=== PATIENT | female | born 1945 | race Caucasian/White ===

== ENCOUNTER 2021-12-12 06:20 | Day surgery (SDC) | payer MEDICARE, SELFPAY ==
[2021-12-05 13:27] VITALS: BMI 28.9
--- NOTE | 2021-12-09 07:56 | MHC.SHP ---
Pre-Procedural Eval Section A Date of Service: 12/09/21 The patient is an INPATIENT: No Changes since office visit: No Cold of Flu in the past 2 weeks, No New Medical Problems, No Changes in Medication and No Patient answered all questions The History & Physical has been completed within 30 days and I have reviewed it.: Yes Section B Chief Complaint: cataract Allergies: Allergies Allergy/AdvReac Type Severity Reaction Status Date / Time No Known Allergies Allergy Verified 12/05/21 13:26 Plan Diagnosis/Plan: Unchanged I have reviewed the history and physical and performed a pertinent physical examination on my patient. No changes have occurred unless specified.
--- NOTE | 2021-12-09 09:43 | P.CONAN_ITS ---
Documented by User: Ann Coleman NP 12/09/21 09:44 HPI - Anesthesia Eval Consult details Narrative: 76yo F for Left Cataract Extraction IOL Insertion PCP cleared No prev cataract on record PMFSH Past Medical History Medical History Arthritis COVID-19 vaccine series completed Hiatal hernia Osteopenia Osteoporosis Skin cancer Surgical History Surgical History H/O colonoscopy History of esophagogastroduodenoscopy (EGD) Social History Social History Are you a primary respiratory care instructor to a significant other at home: No Do you presently have visiting nurse or other home services: No Patient Tobacco Use Status: Former Tobacco user Quit Date: 1982 Tobacco use type: Cigarette Use of substances other than those prescribed or required for medical reasons: No Have you been hit, kicked, punched, or otherwise hurt by someone within the past year? If so, by whom?: No Are you DNR?: No Advance Directives: Yes Advance Directives Information Provided: Yes Advance Directives on File: No Recently lost weight without trying: No Eating poorly because of decreased appetite: No Nutrition Risks: No Nutritional Risk Poor oral hygiene: No Meds Allergies Allergy/AdvReac Type Severity Reaction Status Date / Time No Known Allergies Allergy Verified 12/05/21 13:26 Home Medications Medication Instructions Recorded Confirmed Last Taken Type alendronate 70 mg tablet 1 tab PO QWEEK 12/05/21 12/05/21 Unknown History ascorbic acid (vitamin C) 1,000 mg 1,000 mg PO DAILY 12/05/21 12/05/21 Unknown History tablet (Vitamin C) calcium carbonate 600 mg-vitamin 1 cap PO DAILY 12/05/21 12/05/21 Unknown History D3 5 mcg (200 unit) capsule (Calcium 600 + D(3)) flaxseed oil 1,000 mg capsule 1,000 mg PO DAILY 12/05/21 12/05/21 Unknown History multivitamin 1 tab PO DAILY 12/05/21 12/05/21 Unknown History Exam Exam Date and Time: December 09, 2021 0943 Height,Weight and Vital Signs: Height 5 ft 4 in Weight 76.4 kg Assessment and Plan Assessment Anesthesia Assessment: Chart Reviewed Documented by User: Margo Witt MD 12/12/21 07:41 PMFSH Past Medical History Medical History Arthritis COVID-19 vaccine series completed Hiatal hernia Osteopenia Osteoporosis Skin cancer Surgical History Surgical History H/O colonoscopy History of esophagogastroduodenoscopy (EGD) History of Problems with Anesthesia: No Social History Social History Are you a primary respiratory care instructor to a significant other at home: No Do you presently have visiting nurse or other home services: No Patient Tobacco Use Status: Former Tobacco user Quit Date: 1982 Tobacco use type: Cigarette Use of substances other than those prescribed or required for medical reasons: No Have you been hit, kicked, punched, or otherwise hurt by someone within the past year? If so, by whom?: No Are you DNR?: No Advance Directives: Yes Advance Directives Information Provided: Yes Advance Directives on File: No Recently lost weight without trying: No Eating poorly because of decreased appetite: No Nutrition Risks: No Nutritional Risk Poor oral hygiene: No Meds Allergies Allergy/AdvReac Type Severity Reaction Status Date / Time No Known Allergies Allergy Verified 12/05/21 13:26 Home Medications Medication Instructions Recorded Confirmed Last Taken Type alendronate 70 mg tablet 1 tab PO QWEEK 12/05/21 12/05/21 Unknown History ascorbic acid (vitamin C) 1,000 mg 1,000 mg PO DAILY 12/05/21 12/05/21 Unknown History tablet (Vitamin C) calcium carbonate 600 mg-vitamin 1 cap PO DAILY 12/05/21 12/05/21 Unknown History D3 5 mcg (200 unit) capsule (Calcium 600 + D(3)) flaxseed oil 1,000 mg capsule 1,000 mg PO DAILY 12/05/21 12/05/21 Unknown History multivitamin 1 tab PO DAILY 12/05/21 12/05/21 Unknown History Exam Airway Mallampati Class: II TM Dist: >3cm Neck ROM: Full Loose/Missing/Broken Teeth: No Heart: RRR Lungs: CTA Assessment and Plan Assessment Anesthesia Assessment: Anesthesia Plan Discussed Final Anesthetic Review History of Problems with Anesthesia: No NPO: Yes ASA Class: II Final Preanesthetic Review: Meds/Allgs Chart Reviewed, Consent Obtained/Reviewed and Anes Risks/Benef Reviewed Patient Risk: Low Procedure Risk: Low Anesthetic Plan Anesthetic Plan: MAC: Disposition: Standard PACU
[2021-12-12 06:41] VITALS: BP 170/60; PULSE 59; RESP 16; TEMP 36.8; O2SAT 96
[2021-12-12] MEDS: Tetracaine HCl/PF 0.5% Oph Sol 4 ML DROPS 1 DROP EYE-LEFT (06:47)
[2021-12-12] MEDS: Tropicamide 1 % Ophth Sol 3 ML BTL 1 DROP EYE-LEFT ×3 (06:50→06:58)
[2021-12-12] MEDS: Phenylephrine HCL 2.5% Oph SoL 2 ML BOTTLE 1 DROP EYE-LEFT ×3 (06:51→07:01)
[2021-12-12] MEDS: Lactated Ringers 500 ML 50 ML IV (06:51)
--- NOTE | 2021-12-12 07:51 | HO.PNOPHT ---
Ophthalmology Procedure Procedure Date of Service: 12/12/21 Ophthalmology Viscoelastic: Healtrent Duet Dual Pack Pro Ophthalmology Lenses: TECNIS [id number] (12.5) Procedure Notes: PREOPERATIVE DIAGNOSIS: Decreased visual acuity left eye secondary to cataract POSTOPERATIVE DIAGNOSIS: Same PROCEDURE: Left cataract extraction with intraocular lens insertion SURGEON: Jimmy Jaquez M.D. ANESTHESIA: Topical/MAC ESTIMATED BLOOD LOSS: None COMPLICATIONS: None After obtaining informed consent, the patient was brought to the operation room suite and placed in the supine position. After adequate sedation per anesthesia, topical drops of Tetracaine were given to the left eye. The eye was then prepped and draped in the usual sterile fashion. The operating room microscope was then positioned over the operative eye and a lid speculum placed. A paracentesis was created. Viscoelastic was then instilled into the anterior chamber. A three plane incision was then created temporally, utilizing a 2.85 mm keratome. Capsulotomy forceps were then utilized to create a circular tear capsulotomy. Hydrodissection and hydrodelineation were carried out until adequate mobilization of the nucleus occurred. Phacoemulsification was then utilized to remove the dense central nucleus followed by removal of the cortical material utilizing the automated aspiration irrigation unit. Viscoat elastic was instilled into the posterior capsular bag followed by placement of a posterior chamber intraocular lens without difficulty. The residual Viscoat elastic was then removed utilizing the automated IA machine. The wound was check and found to be watertight. The patient tolerated the procedure well and the lid speculum was removed. Intracameral injection of Vigamox 0.1 mL followed by a subtenon injection of Kenalog-40 0.2 mL were administered. The patient will be seen in the a.m.
[2021-12-12 08:15] VITALS: BP 122/97; PULSE 55; RESP 18; TEMP 36.2; O2SAT 98
== END 2021-12-12 08:33 | disposition home or self-care (01) ==
PROVIDERS: PCP Physician Assistant Medical; Visit Provider Ophthalmology
PROC: (CPT 66985; principal; 2021-12-12 07:50)
DX: H25.12 Age-related nuclear cataract, left eye (principal); H52.4 Presbyopia; Z83.511 Family history of glaucoma; H43.399 Other vitreous opacities, unspecified eye; M81.0 Age-related osteoporosis without current pathological fracture; Z85.820 Personal history of malignant melanoma of skin; Z85.828 Personal history of other malignant neoplasm of skin; Z87.891 Personal history of nicotine dependence
CPT/HCPCS: 66984; J2250; J3010; J3300; V2632

== ENCOUNTER 2021-12-26 06:19 | Day surgery (SDC) | payer MEDICARE, SELFPAY ==
[2021-12-05 13:29] VITALS: BMI 28.9
--- NOTE | 2021-12-22 11:33 | MHC.SHP ---
Pre-Procedural Eval Section A Date of Service: 12/22/21 The patient is an INPATIENT: No Changes since office visit: No Cold of Flu in the past 2 weeks, No New Medical Problems, No Changes in Medication and No Patient answered all questions The History & Physical has been completed within 30 days and I have reviewed it.: Yes Section B Chief Complaint: cataract Allergies: Allergies Allergy/AdvReac Type Severity Reaction Status Date / Time No Known Allergies Allergy Verified 12/05/21 13:26 Plan Diagnosis/Plan: Unchanged I have reviewed the history and physical and performed a pertinent physical examination on my patient. No changes have occurred unless specified.
--- NOTE | 2021-12-22 15:05 | HO.ANESPROP2 ---
Documented by User: Ann Coleman NP 12/22/21 15:06 HPI - Anesthesia Eval Consult details Narrative: 76yo F for Right Cataract Extraction IOL Insertion PCP cleared Left eye 12/12/21 with MAC: Fent 50, Midaz 1 PMFSH Past Medical History Medical History Arthritis COVID-19 vaccine series completed Hiatal hernia Osteopenia Osteoporosis Skin cancer Surgical History Surgical History H/O colonoscopy History of esophagogastroduodenoscopy (EGD) History of Problems with Anesthesia: No Social History Social History Are you a primary rn palliative care to a significant other at home: No Do you presently have visiting nurse or other home services: No Patient Tobacco Use Status: Former Tobacco user Quit Date: 1982 Tobacco use type: Cigarette Use of substances other than those prescribed or required for medical reasons: No Have you been hit, kicked, punched, or otherwise hurt by someone within the past year? If so, by whom?: No Are you DNR?: No Advance Directives: No Advance Directives Information Provided: Yes Advance Directives on File: No Recently lost weight without trying: No Eating poorly because of decreased appetite: No Nutrition Risks: No Nutritional Risk Poor oral hygiene: No Meds Allergies Allergy/AdvReac Type Severity Reaction Status Date / Time No Known Allergies Allergy Verified 12/05/21 13:26 Home Medications Medication Instructions Recorded Confirmed Last Taken Type alendronate 70 mg tablet 1 tab PO QWEEK 12/05/21 12/05/21 Unknown History ascorbic acid (vitamin C) 1,000 mg 1,000 mg PO DAILY 12/05/21 12/05/21 Unknown History tablet (Vitamin C) calcium carbonate 600 mg-vitamin 1 cap PO DAILY 12/05/21 12/05/21 Unknown History D3 5 mcg (200 unit) capsule (Calcium 600 + D(3)) flaxseed oil 1,000 mg capsule 1,000 mg PO DAILY 12/05/21 12/05/21 Unknown History multivitamin 1 tab PO DAILY 12/05/21 12/05/21 Unknown History Exam Exam Date and Time: December 22, 2021 1505 Height,Weight and Vital Signs: Height 5 ft 4 in Weight 76.4 kg Assessment and Plan Assessment Anesthesia Assessment: Chart Reviewed Final Anesthetic Review History of Problems with Anesthesia: No Documented by User: Saurav Millan MD 12/26/21 07:07 [facility] Past Medical History Medical History Arthritis COVID-19 vaccine series completed Hiatal hernia Osteopenia Osteoporosis Skin cancer Family History Family history of problems with anesthesia: No Surgical History Surgical History H/O colonoscopy History of esophagogastroduodenoscopy (EGD) Social History Social History Are you a primary rn palliative care to a significant other at home: No Do you presently have visiting nurse or other home services: No Patient Tobacco Use Status: Former Tobacco user Quit Date: 1982 Tobacco use type: Cigarette Use of substances other than those prescribed or required for medical reasons: No Have you been hit, kicked, punched, or otherwise hurt by someone within the past year? If so, by whom?: No Are you DNR?: No Advance Directives: No Advance Directives Information Provided: Yes Advance Directives on File: No Recently lost weight without trying: No Eating poorly because of decreased appetite: No Nutrition Risks: No Nutritional Risk Poor oral hygiene: No Meds Allergies Allergy/AdvReac Type Severity Reaction Status Date / Time No Known Allergies Allergy Verified 12/05/21 13:26 Home Medications Medication Instructions Recorded Confirmed Last Taken Type alendronate 70 mg tablet 1 tab PO QWEEK 12/05/21 12/05/21 Unknown History ascorbic acid (vitamin C) 1,000 mg 1,000 mg PO DAILY 12/05/21 12/05/21 Unknown History tablet (Vitamin C) calcium carbonate 600 mg-vitamin 1 cap PO DAILY 12/05/21 12/05/21 Unknown History D3 5 mcg (200 unit) capsule (Calcium 600 + D(3)) flaxseed oil 1,000 mg capsule 1,000 mg PO DAILY 12/05/21 12/05/21 Unknown History multivitamin 1 tab PO DAILY 12/05/21 12/05/21 Unknown History Exam Airway Mallampati Class: II TM Dist: >3cm Neck ROM: Full Loose/Missing/Broken Teeth: No Heart: rrr+[id number] Lungs: cta b/l Assessment and Plan Assessment Anesthesia Assessment: Anesthesia Plan Discussed Final Anesthetic Review Family History of Problems with Anesthesia: No NPO: Yes ASA Class: II Final Preanesthetic Review: No Changes in Pt Med Stat, Meds/Allgs Chart Reviewed, Consent Obtained/Reviewed and Anes Risks/Benef Reviewed Patient Risk: Intermediate Procedure Risk: Low Assessment/Block/Sedation in SS: Assess/Block/Sedation-SS Anesthetic Plan Anesthetic Plan: MAC: and Agree w/ Assess. and Plan Disposition: Standard PACU
[2021-12-26 06:31] VITALS: BP 165/83; PULSE 57; RESP 16; TEMP 36.4; O2SAT 94
[2021-12-26] MEDS: Tetracaine HCl/PF 0.5% Oph Sol 4 ML DROPS 1 DROP EYE-RIGHT (06:38)
[2021-12-26] MEDS: Tropicamide 1 % Ophth Sol 3 ML BTL 1 DROP EYE-RIGHT ×3 (06:39→06:52)
[2021-12-26] MEDS: Phenylephrine HCL 2.5% Oph SoL 2 ML BOTTLE 1 DROP EYE-RIGHT ×3 (06:45→06:57)
[2021-12-26] MEDS: Lactated Ringers 500 ML 50 ML IV (06:59)
--- NOTE | 2021-12-26 07:53 | HO.PNOPHT ---
Ophthalmology Procedure Procedure Date of Service: 12/26/21 Ophthalmology Viscoelastic: Healtrent [place] Dual Pack Pro Ophthalmology Lenses: TECMYRA [id number] (11.5) Procedure Notes: PREOPERATIVE DIAGNOSIS: Decreased visual acuity right eye secondary to cataract POSTOPERATIVE DIAGNOSIS: Same PROCEDURE: Right cataract extraction with intraocular lens insertion SURGEON: Jimmy Jaquez M.D. ANESTHESIA: Topical/MAC ESTIMATED BLOOD LOSS: None COMPLICATIONS: None After obtaining informed consent, the patient was brought to the operating room suite and placed in the supine position. After adequate sedation per anesthesia, topical drops of Tetracaine were given to the right eye. The eye was then prepped and draped in the usual sterile fashion. The operating room microscope was then positioned over the operative eye and a lid speculum placed. A paracentesis was created. Viscoelastic was then instilled into the anterior chamber. A three plane incision was then created temporally, utilizing a 2.85 mm keratome. Capsulotomy forceps were then utilized to create a circular tear capsulotomy. Hydrodissection and hydrodelineation were carried out until adequate mobilization of the nucleus occurred. Phacoemulsification was then utilized to remove the dense central nucleus followed by removal of the cortical material utilizing the automated aspiration irrigation unit. Viscoelastic was instilled into the posterior capsular bag followed by placement of a posterior chamber intraocular lens without difficulty. The residual Viscoelastic was then removed utilizing the automated IA machine. The wound was checked and found to be watertight. The patient tolerated the procedure well and the lid speculum was removed. Intracameral injection of Vigamox 0.1 mL followed by a subtenon injection of Kenalog-40 0.2 mL were administered. The patient will be seen in the a.m.
[2021-12-26 08:12] VITALS: BP 153/70; PULSE 58; RESP 16; TEMP 36.6; O2SAT 100
== END 2021-12-26 08:22 | disposition home or self-care (01) ==
PROVIDERS: PCP Physician Assistant Medical; Visit Provider Ophthalmology
PROC: (CPT 66985; principal; 2021-12-26 07:50)
DX: H25.11 Age-related nuclear cataract, right eye (principal)
CPT/HCPCS: 66984; J2250; J3010; J3300; V2632

== ENCOUNTER 2025-07-14 11:30 | Outpatient (AMB) | payer MEDICARE, SELFPAY ==
--- NOTE | 2025-07-14 11:30 | A.OFFVIS_ITS ---
Vital Signs 07/14/25 11:36 Height 5 ft 4 in Weight 146 lb BMI 25.1 BP 126/84 Intake Visit Reasons: enlarged ovary Lathe Mechanic Required: No Information Interpreted: non-clinical & clinical Basic Sciences Dean: Basic Sciences Dean Present (Kristen LINCOLN) Accompanied by: Self / Same As Patient Allergies No Known Allergies Allergy (Verified 07/14/25 11:38) Post menopausal: Yes HPI Comments Details: Presenting referred from [place] PCP regarding abnormal imaging of the pelvis. The patient is has been complaining of weight loss associated with constipation abdominal bloating last six-months 05/05/2025 CT scan of abdomen and pelvis done at [place] showed prominent right ovary, pelvic ultrasound recommended. 05/13/2025 Pelvic ultrasound done at [place] showed 1.7 cm myoma, ovaries were not seen recommended pelvic MRI with contrast for further evaluation 06/22/2025 MRI of the pelvis done at [place] showed mildly complex structure of the right aspect of the pelvis the nature is uncertain possibility of inclusion cyst versus ovarian no plan to be considered. Recommended a follow-up MRI with contrast in 6 weeks [facility] Medical History COVID-19 vaccine series completed Arthritis Skin cancer Osteopenia Osteoporosis Hiatal hernia Surgical History History of esophagogastroduodenoscopy (EGD) H/O colonoscopy Family History Father HTN (hypertension) Mother HTN (hypertension) Sister Breast cancer Social History Household Members: Spouse Housing: House Are you a primary patient care associate to a significant other at home: No Do you presently have visiting nurse or other home services: No Alcohol intake: never Patient Tobacco Use Status: Former Tobacco user Tobacco use type: Cigarette Years Smoked: 16 Current occupational status: retired Sexual orientation: Straight/Heterosexual Gender identity: Female Review of Systems Const All systems reviewed & are unremarkable except as noted in HPI and below Physical Exam Vital Signs: Last Vital Signs BP 126/84 07/14/25 11:36 BMI result Body Mass Index 25.1 General: Yes no CVA tenderness External Female Exam: normal external appearance and normal appearance of the urethra Speculum Exam - Vagina: normal appearance of the vagina, normal palpation, no lesions and no masses Speculum Exam - Cervix: normal appearance of the cervix, normal palpation, no le sions, no masses and nontender Bimanual exam- vagina & uterus: normal bimanual exam, normal palpation, uterine size normal, normal palpation, uterine shape normal, No Cervical tenderness present and non-tender Bimanual Exam- Adnexa, other: normal adnexae Back/Spine/Pelvis Back: no CVA tenderness Assessment & Plan Assessment & Plan (1) Pelvic mass: Code(s): R19.00 - Intra-abdominal and pelvic swelling, mass and lump, unspecified site Category: Medical Plan: Given the non specificity of the findings of the pelvic imaging, recommended repeat MRI wolf depending on the finding will determine the next step. MRI of the pelvis with contrast ordered. Instructions given the patient is schedule follow-up appointment within a week. All questions answered, the patient verbalized understanding Orders: Orders MR pelvis w con Today R19.00 - Intra-abdominal and pelvic swelling, mass and lump, unspecified site Coding Level of Care Code New Pt Level 3 (86050) Diagnoses Pelvic mass R19.00
[2025-07-14 11:36] VITALS: BP 126/84; BMI 25.1
--- OUTSIDE RECORDS SUMMARY | 2025-07-14 14:44 | XMS_ITS ---
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 Treatment was discontinued as she had been treated for greater than 5 years. We did a bone density study in 2021 which showed osteoporosis with worsening of the T score. Tried fosamax but had throat issues, decided on Ca and D instead Osteopenia 02/17/2015 Sliding hiatal hernia 03/13/2014 Overview (08/18/2024): Barium swallow 02/25/14, small Disorder of bone and cartilage 03/25/2006 Overview (08/18/2024): IMO update Current Treatment and Therapy Plans No current plan information found. Past Treatment and Therapy Plans No past plan information found. Lifetime Dose Tracking * Chemical Lifetime Dose Automatic Entry Manual Entr y CTDIvol 11.14 mGy 11.14 mGy 0 mGy
--- OUTSIDE RECORDS SUMMARY | 2025-07-14 14:44 | XMS_ITS | Clinical Summary ---
Author Organization [facility] [address] [place] [address] Address [address] [facility] [place] Phone Care Team Providers Care Processing Analyst Name Role Phone Derek Sams Primary Care Provider [phone] Allergies No known active allergies Medications calcium carbonate-vitam in D3 600 mg-5 mcg (200 unit) per tablet Take by mouth. Active MULTIVITAMIN ORAL 1 tab daily Active raloxifene (EVISTA) 60 mg tablet Take 1 tablet (60 mg total) by mouth 1 (one) time each day. 90 tablet 3 5 Active losartan (COZAAR) 25 mg tablet TAKE 1 TABLET DAILY 90 tablet 5 Active losartan (COZAAR) 25 mg tablet Take 1 tablet (25 mg total) by mouth 1 (one) time each day. 4 06/29/20 25 Discontinued Active Problems Problem Noted Date Diagnosed Date [...] and cartilage 03/25/2006 Overview (08/18/2024): IMO update Encounters Date Type Department Care Team Description 06/19/2025 Results Follow-Up Adult Medicine [address] [phone] Nandini Mckay, PA 06/17/2025 9:46 AM EDT - 06/17/2025 11:59 PM EDT Hospital Encounter Radiology Department - [address] [phone] Enlarged ovary Discharge Disposition: Home or Self Care 05/13/2025 8:59 AM EDT - 05/13/2025 11:59 PM EDT Hospital Encounter Radiology Department - [address] [phone] Enlarged ovary Discharge Disposition: Home or Self Care 05/05/2025 8:34 AM EDT - 05/05/2025 11:59 PM EDT Hospital Encounter CT Scan - [address] [phone] Abdominal bloating; Weight loss; Constipation, unspecified constipation type Discharge Disposition: Home or Self Care 04/27/2025 11:00 AM EDT Office Visit Adult Medicine [address] [phone] Nandini Mckay PA Primary hypertension (Primary Dx); Age-related osteoporosis without current pathological fracture; Abdominal bloating; Weight loss; Constipation, unspecified constipation type from Last 3 Months Immunizations Immunization Administration Dates Next Due COVID-19 (Pfizer/Comirnaty) 12yo and older 06/12/2023 DTaP, Unspecified 10/09/2003 H1N1 Inj Preservative Free 08/24/2009 Influenza Quadravalent, 0.5m l (Fluzone High-dose) 65yo and older 06/11/2023,05/25/2022,05/25/2021 Influenza trivalent, 0.5mL ( Fluad) 65yo and older 05/25/2021,05/04/2020,05/20/2019,05/13,05/16/2017,05/24/2016,05/25/2015 Influenza trivalent, 0.5mL ( Fluzone High-dose) 65yo and older 06/03/2024,05/04/2020,05/20/2019,05/16,05/24/2016,05/25/2015 Influenza trivalent, 0.5mL, preservative free (Fluarix; FluLaval; Fluzone) ages 6mo and older (Afluria) 3 years and older 05/25/2022,06/01/2014,06/05/2013,06/04,06/16/2011,06/18/2010,06/17/2009 ,06/20/2008,06/10/2007,08/18/2006,01/2005 Influenza trivalent, with pr eservative (Fluzone; Afluria) 6mo and older 06/01/2014,06/05/2013,06/04/2012,06/16,06/18/2010,06/17/2009,06/20/2008 ,06/10/2007,08/18/2006,07/22/2005 Influenza, Unspecified 06/12/2023,2021,05/22/2019,05/16,05/24/2016 Pfizer (ages 12 & older) Biv alent, COVID-19 05/25/2022 Pfizer SARS-CoV-2 COVID-19, mRNA, LNP-S, preservative free 06/12/2023,05/25/2022,06/19/2021 Pneumococcal conjugate 13 va lent (Prevnar 13, PCV13) 2mo and older 05/28/2019,02/15/2015 Pneumococcal polysaccharide 23 valent (Pneumovax 23) 2yo and older 08/24/2009 Respiratory syncytial virus (RSV), unspecified 04/27/2023 Td Tetanus diptheria (Tdvax) 7yo and older 02/15/2015 Td, Unspecified 10/09/2003 Tdap Tetanus diptheria acell ular pertussis (Boostrix; Adacel) 7yo and older 04/27/2025 Zoster Live 09/06/2011 Zoster recombinant (Shingrix ) 19yo and older 09/12/2019,07/18/2019 Surgical History Surgery Date Site/Laterality Comments OTHER SURGICAL HISTORY PROCEDURE: HISTORICAL CA BASAL CELL; 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 COLONOSCOPY 01/31/2023 PROCEDURE: HISTORICAL COLONOSCOPY; COMMENT: muslu -hemorrhoids, diverticulosis, no repeat due to age Medical History Medical History Date Comments Disorder of bone and cartila ge, unspecified 03/25/2006 DX:Disorder of bone and cart ilage, unspecified Melanoma of skin, site unspecified 03/27/2006 DX:Melanoma of skin, site unspecified Actinic keratosis, hx of DX:Acti gunjan keratosis, hx of Sliding hiatal hernia 03/13/2014 DX:Sliding hiatal hernia; COMMENT: Barium swallow 02/25/14, small Other specified personal his tory presenting hazards to health(V15.89) DX:Other specifie d personal history presenting hazards to health(V15.89); COMMENT: melanoma left shoulder 2008 Osteopenia 02/17/2015 DX:Osteopenia History of melanoma 03/27/2006 DX:History o f melanoma; COMMENT: 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) History of squamous cell carcinoma 11/01/2006 DX:History of squamous cell carcinoma; COMMENT: 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) History of malignant melanoma of skin 03/27/2006 DX:History of malignant melanoma of skin; COMMENT: 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) History of squamous cell car cinoma of skin 11/01/2006 DX:History of squamous cell carcinoma of skin; COMMENT: 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) History of actinic keratoses 05/28/2008 DX: History of actinic keratoses; COMMENT: Actinic keratosis 05/25 right arm (hypertrophic) Hiatal hernia DX:Hiatal hernia Schatzki's ring DX:Schatzki's ri ng Rectal pressure DX:Rectal pressu re Abnormal large bowel motility DX :Abnormal large bowel motility Encounter for diagnostic col onoscopy due to change in bowel habits DX:Encounter for diagnos tic colonoscopy due to change in bowel habits Family History Medical History Relation Name Comments Breast cancer Sister 1 age 55 Colon cancer Neg Hx Ovarian cancer Neg Hx Relation Name Status Comments Brother 1 hiv Brother 2 hiv Brother 3 Alive Father (Age 82) [place] DM 4 SI BS 1 HIV 1 SISTER WITH BREAST CANCER Mother (Age 89) RA HTN Sister 1 age 55 Alive Sister 2 Alive breast cancer Social History Tobacco Use Types Packs/Day Years Used Date Smoking Tobacco: Former Cigarettes Q uit: 09/17/1982 Smokeless Tobacco: Never Tobacco Cessation:Counseling Given: Not Answered Alcohol Use Standard Drinks/Week Comments No 0 (1 standard drink = 0.6 oz pur e alcohol) Housing Instability Answer Date Recorde d Are you worried that in the next 2 months you may not have stable housing? No 10/24/2024 Food Access & Nutrition Answer Date Rec orded Do you have access to a vari ety of food including fruits and vegetables? No 10/24/2024 Access to Healthcare Answer Date Record ed Within the last 3 months, ho w many times did you visit the emergency department for your medical care? 0 10/24/2024 Health Literacy Answer Date Recorded How often do you need to hav e someone help you when you read instructions, pamphlets, or other written material from your doctor or pharmacy? Never 10/24/2024 Caregiver: How often do you need to have someone help you when you read instructions, pamphlets, or other written material from your doctor or pharmacy? Not on file 10/24/2024 Financial Risk Answer Date Recorded How hard is it for you to pa y for the very basics like food, housing, medical care, and air conditioning / heating? Not very hard 10/24/2024 Transportation Answer Date Recorded Has the lack of transportati on kept you from meetings, work, or from getting things needed for daily living? No Has the lack of transportati on kept you from medical appointments or from getting medications? No 10/24/2024 Social Isolation Answer Date Recorded How often do you feel lonely or isolated from th ose around you? Never 10/24/2024 Food Risk Answer Date Recorded Within the past 12 months we worried whether our food would run out before we got money to buy more. Never true 10/24/2024 Within the past 12 months th e food we bought just didn't last and we didn't have money to get more. Never true 10/24/2024 Living Situation Answer Date Recorded What is your living situation? Unrecognized valu e 10/24/2024 Comments No Sex and Gender Information Value Date Recorded Sex Assigned at Not on file Legal Sex Female 1:20 PM EST Gender Identity Not on file Sexual Orientation Not on file Obstetrics History Para Term AB IAB SAB Ectopic Multiple Livin g Live Births 0 0 0 0 Last Filed Vital Signs Vital Sign Reading Time Taken Comments Blood Pressure 138/77 04/27/2025 11:11 AM EDT Pulse 56 04/27/2025 11:11 AM EDT Temperature 35.7 C (96.3 F) 04/27/2025 11:02 AM EDT Respiratory Rate 12 04/27/2025 11:02 AM EDT Oxygen Saturation 97% 04/27/2025 11:11 AM EDT Inhaled Oxygen Concentration - - Weight 67.4 kg (148 lb 9.6 oz) 04/27/2025 11:02 AM EDT Height 162.6 cm (5' 4 ) 04/27/2025 11:02 AM EDT Body Mass Index 25.51 04/27/2025 11:02 AM EDT Plan of Treatment Upcoming Encounters Date Type Department Care Team (Late st Contact Info) Description 10/30/2025 8:15 AM EST Office Visit Adult [address] [phone] Derek Sams PA [address] [place] [phone] Health Maintenance Due Date Last Done Comments RSV Immunization Adult Patients (1 - 1-dose 75+ series) 2019 04/27/2023 Depression Screening 09/17/2024 04/22/2024 Medicare Annual Wellness Visit 04/22/2025 04/22/2024 Falls Risk Assessment 10/24/2025 10/24/2024 Social Influencers of Health Screening 10/24/2025 10/24/2024 Hypertension/CHF/CAD Annual BMP Blood Test 02/24/2026 02/24/2025, 03/25/2024, 03/25/2024 Cholesterol Screening (Lipid Panel) 02/24/2030 02/24/2025, 03/25/2024, 03/25/2024 Osteoporosis Screening (Bone Density Screening) 12/04/2033 12/05/2023, 09/29/2021 DTaP,Tdap,and Td Vaccines (5 - Td or Tdap) 04/27/2035 04/27/2025, 02/15/2015, 10/09/2003, Additional history exists Pneumococcal Vaccine: 50+ Years Completed 05/28/2019, 02/15/2015, 08/24/2009 Zoster Vaccines Completed 09/12/2019, 09/2018, 09/06/2011 RSV Immunization Patients Under 20 months Aged Out 04/27/2023 No longer eligible based on patient's age to complete this topic COVID-19 Vaccine Completed 06/04/2025, , 06/03/2024, Additional history exists Influenza Vaccine Completed 06/04/2025, , 06/03/2024, Additional history exists HIB Vaccines Aged Out No longer eligi ble based on patient's age to complete this topic HPV Vaccines Aged Out No longer eligi ble based on patient's age to complete this topic Hepatitis A Vaccines Aged Out No long er eligible based on patient's age to complete this topic Hepatitis B Vaccines Aged Out No long er eligible based on patient's age to complete this topic IPV Vaccines Aged Out No longer eligi ble based on patient's age to complete this topic MMR Vaccines Aged Out No longer eligi ble based on patient's age to complete this topic Meningococcal ACWY Vaccine Aged Out N o longer eligible based on patient's age to complete this topic Meningococcal B Vaccine Aged Out No l onger eligible based on patient's age to complete this topic Varicella Vaccines Aged Out No longer eligible based on patient's age to complete this topic Procedures Procedure Name Priority Date/Time Associated Diagnosis Comments MR PELVIS WO AND W CONTRAST Routine 06/17/2025 10:49 AM EDT Enlarged ovary US PELVIS NON OB COMPLETE W TRANSVAGINAL Routine 05/13/2025 10:16 AM EDT Enlarged ovary HELICOBACTER PYLORI BREATH TEST Routine 05/13/2025 9:52 AM EDT Abdominal bloating CT ABDOMEN PELVIS WO CONTRAST Routine 05/05/2025 8:55 AM EDT Abdominal bloating Weight loss Constipation, unspecified constipation type COMPREHENSIVE METABOLIC PANEL Routine 02/24/2025 7:53 AM EDT Primary hypertension LIPID PANEL WITH REFLEX TO DIRECT LDL Routine 02/24/2025 7:53 AM EDT Primary hypertension HM DEPRESSION SCREENING Routine 04/22/2024 DXA BONE DENSITY STUDY 1+ SITS AXIAL SKEL Routine 12/05/2023 9:19 AM EDT Essential (primary) hypertension from Last 3 Months or Most Recently Relevant to Health Maintenance Results * MR Pelvis wo and w Contrast (06/17/2025 10:49 AM EDT) Anatomical Region Laterality Modality Pelvis, Body Magnetic Resonan ce 06/17/2025 8:14 PM EDT Narrative 06/17/2025 8:59 PM EDT MRI of the pelvis without and with intravenous contrast. History nonvisualized ovaries on ultrasound. Prominent ovary on arm CT scan of the abdomen and pelvis from 05/05/2025. Examination was performed on 1.5 Maria Elena magnet without administration of intravenous contrast. 15 mL of DOTAREM were used for this examination. Examination is limited due to motion artifact as well as artifact from significant peristaltic activity of the small bowel in the lower abdomen and right adnexal area. Age appropriate atrophic uterus was identified without visible focal abnormalities. There is lobulated 2.7 x 2.7 x 2.8 cm structure high in the right pelvis revealed bright T2 signal, mildly increased T1 signal . This structure corresponds to findings on CT scan of the abdomen and pelvis. There is focal thickening of the posterior wall of this structure, better appreciated on axial image #26, series 501. No ovarian tissue identified surrounding this structure. There is difficult to evaluate for enhancement due to motion artifact. Possible focal enhancement on the inferior aspect visualized on axial image #71, series 901. Age-appropriate is tiny left ovary was visualized on axial image #26, series 1001 and series 601. There is trace amount of fluid in the cul-de-sac. CONCLUSIONS: Limited by motion artifact examination. Mildly complex structure in the right aspect of the pelvis with bright T2 signal, mildly increased T1 signal, mild thickening of the posterior wall , with focus of probable enhancement. The nature is uncertain. Possibility of the inclusion cyst, versus ovarian neoplasm should be considered. Clinical evaluation is recommended. Follow-up MRI with intravenous contrast is recommended in 6 months. -------- FINAL REPORT -------- Dictated By: Jacqueline Myers Dictated Date: 06/17/2025 20:14 ET Assigned Physician: Jacqueline Myers Reviewed and Electronically Signed By: Jacqueline Myers Signed Date: 06/17/2025 20:59 ET Workstation ID: [id number] Transcribed By: Self Edit Transcribed Date: 06/17/2025 20:14 ET Procedure Note Jacqueline Myers MD - 06/17/2025 MRI of the pelvis without and with intravenous contrast. History nonvisualized ovaries on ultrasound. Prominent ovary on arm CTscan of the abdomen and pelvis from 05/05/2025. Examination was performed on 1.5 Maria Elena magnet without administration ofintravenous contrast. 15 mL of DOTAREM were used for this examination. Examination is limited due to motion artifact as well as artifact fromsignificant peristaltic activity of the small bowel in the lower abdomenand right adnexal area. Age appropriate atrophic uterus was identified without visible focalabnormalities. There is lobulated 2.7 x 2.7 x 2.8 cm structure high in the right pelvisrevealed bright T2 signal, mildly increased T1 signal . This structurecorresponds to findings on CT scan of the abdomen and pelvis. There isfocal thickening of the posterior wall of this structure, betterappreciated on axial image #26, series 501. No ovarian tissue identifiedsurrounding this structure. There is difficult to evaluate for enhancementdue to motion artifact. Possible focal enhancement on the inferior aspectvisualized on axial image #71, series 901. Age-appropriate is tiny left ovary was visualized on axial image #26,series 1001 and series 601. There is trace amount of fluid in the cul-de-sac. CONCLUSIONS: Limited by motion artifact examination. Mildly complexstructure in the right aspect of the pelvis with bright T2 signal, mildlyincreased T1 signal, mild thickening of the posterior wall , with focus ofprobable enhancement. The nature is uncertain. Possibility of theinclusion cyst, versus ovarian neoplasm should be considered. Clinicalevaluation is recommended. Follow-up MRI with intravenous contrast isrecommended in 6 months. -------- FINAL REPORT -------- Dictated By: Jacqueline Myers Dictated Date: 06/17/2025 20:14 ET Assigned Physician: Jacqueline Myers Reviewed and Electronically Signed By: Jacqueline Myers Signed Date: 06/17/2025 20:59 ET Workstation ID: [id number] Transcribed By: Self Edit Transcribed Date: 06/17/2025 20:14 ET us Nandini Woody MCNALLY IMG MRI PROCEDURES Final Result * US Pelvis Non OB Complete w Transvaginal (05/13/2025 10:16 AM EDT) Anatomical Region Laterality Modality Body, Pelvis Ultrasound 05/13/2025 1:49 PM EDT Impressions 05/13/2025 1:54 PM EDT 1. Uterine fibroid 2. Ovaries not seen. Recommend MRI pelvis with IV contrast for further evaluation -------- FINAL REPORT -------- Dictated By: Andrez Herrera Dictated Date: 05/13/2025 13:49 ET Assigned Physician: Andrez Herrera Reviewed and Electronically Signed By: Andrez Herrera Signed Date: 05/13/2025 13:54 ET Workstation ID: [id number] Transcribed By: Self Edit Transcribed Date: 05/13/2025 13:49 ET Narrative 05/13/2025 1:54 PM EDT EXAM: TRANSABDOMINAL AND TRANSVAGINAL PELVIC ULTRASOUND HISTORY: Prominent appearing right ovary. COMPARISON: CT abdomen and pelvis from 05/05/2025 Technique: Grayscale and Doppler images of the pelvis were obtained using transabdominal approach. Transvaginal approach was used to better characterize the ovaries FINDINGS: The uterus is normal in size and measures 4.4 x 1.5 x 2.3 cm. The normal in caliber endometrial stripe measures up to 0.2 cm. Within the intramural/subserosal region is a hypoechoic solid mass with calcifications measuring 1.7 x 1.3 x 1.6 cm. Ovaries are not seen. No free fluid. Procedure Note Andrez Herrera MD - 05/13/2025 EXAM: TRANSABDOMINAL AND TRANSVAGINAL PELVIC ULTRASOUND HISTORY: Prominent appearing right ovary. COMPARISON: CT abdomen and pelvis from 05/05/2025 Technique: Grayscale and Doppler images of the pelvis were obtained usingtransabdominal approach. Transvaginal approach was used to bettercharacterize the ovaries FINDINGS: The uterus is normal in size and measures 4.4 x 1.5 x 2.3 cm. The normalin caliber endometrial stripe measures up to 0.2 cm. Within theintramural/subserosal region is a hypoechoic solid mass withcalcifications measuring 1.7 x 1.3 x 1.6 cm. Ovaries are not seen. No free fluid. IMPRESSION: 1. Uterine fibroid 2. Ovaries not seen. Recommend MRI pelvis with IV contrast for furtherevaluation -------- FINAL REPORT -------- Dictated By: Andrez Herrera Dictated Date: 05/13/2025 13:49 ET Assigned Physician: Andrez Herrera Reviewed and Electronically Signed By: Andrez Herrera Signed Date: 05/13/2025 13:54 ET Workstation ID: [id number] Transcribed By: Self Edit Transcribed Date: 05/13/2025 13:49 ET us Nandini Mckay PA IMG US PROCEDURES Final Result * Helicobacter pylori breath test (05/13/2025 9:52 AM EDT) H Pylori Breath Test Negative Negative LAB CHEMISTRY METHOD 05/13/2025 1:56 PM EDT [facility] Breath Oral cavity structure / Unknown Non-blood Collection / Unknown 05/13/2025 9:52 AM EDT 05/13/2025 9:52 AM EDT us Nandini Mckay PA LAB BODY FLUIDS AND STOOLS ORDER CORNELIUS Final Result [facility] [address] [place] [address], [place] [phone] * CT Abdomen Pelvis wo Contrast (05/05/2025 8:55 AM EDT) Anatomical Region Laterality Modality Body Computed Tomogra phy 05/05/2025 8:57 AM EDT Impressions 05/06/2025 9:17 AM EDT No evidence of an acute abdominal or pelvic process. Prominent appearing right ovary. Recommend pelvic ultrasound for further evaluation. A copy of this report will be provided to the [facility] FIND Program. POS - [id number] -------- FINAL REPORT -------- Dictated By: Samantha Burch Dictated Date: 05/05/2025 08:57 ET Assigned Physician: Samantha Burch Reviewed and Electronically Signed By: Samantha Burch Signed Date: 05/06/2025 09:17 ET Workstation ID: [id number] Transcribed By: Self Edit Transcribed Date: 05/05/2025 09:52 ET Narrative 05/06/2025 9:17 AM EDT EXAM: CT abdomen and pelvis HISTORY: Weight loss, bloating, and constipation. COMPARISON: None TECHNIQUE: CT of the abdomen and pelvis with oral and without intravenous contrast. Coronal and sagittal reformatted images were generated. The radiation dose total CTDIvol: 11.14 mGy. FINDINGS: Limited assessment of solid organs without IV contrast. Lower thorax: Mild atelectasis and/or scarring in the basal lungs. No pleural or pericardial effusions. Liver: Multiple scattered cysts with the largest measuring 1.8 cm in the left hepatic lobe. Gallbladder/biliary tree: No calcified gallstones or pericholecystic inflammatory change. Common bile duct does not appear dilated. Spleen: No abnormality detected. Pancreas: No abnormality detected. Adrenal glands: Hypodense thickening of the left adrenal gland as seen with hyperplasia. No right adrenal nodule. Kidneys/ureters: No hydronephrosis or perinephric fat stranding. 2.2 cm cyst arising from the left upper kidney. No renal or definite ureteral stones. Vasculature: Minimal atherosclerotic calcifications. No abdominal aortic aneurysm. Peritoneum: No evidence of free intraperitoneal air, free fluid, or organized collection. Lymph nodes: No lymphadenopathy detected. Bowel: Moderate stool volume in the colon. No evidence of a bowel obstruction. No bowel inflammatory changes. Normal appendix. Mild sigmoid diverticulosis. Small hiatal hernia. Body wall: Tiny fat-containing bilateral inguinal hernias, left greater than right. Bladder: Underdistended. No definite abnormality. Reproductive: Right ovary appears prominent for patient age. No uterine or left ovarian abnormality detected. Bones: Multilevel degenerative changes in the spine. Grade 1 anterolisthesis of L5 on S1. Unilateral spondylolysis on the left at L5. Ovoid fat attenuation lesion in the posterior spinal canal at the L3-4 level which appears intradural and measures 2.6 cm in craniocaudad extent. 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 Procedure Note Samantha Burch MD - 05/06/2025 EXAM: CT abdomen and pelvis HISTORY: Weight loss, bloating, and constipation. COMPARISON: None TECHNIQUE: CT of the abdomen and pelvis with oral and without intravenouscontrast. Coronal and sagittal reformatted images were generated. Theradiation dose total CTDIvol: 11.14 mGy. FINDINGS: Limited assessment of solid organs without IV contrast. Lower thorax: Mild atelectasis and/or scarring in the basal lungs. Nopleural or pericardial effusions. Liver: Multiple scattered cysts with the largest measuring 1.8 cm in theleft hepatic lobe. Gallbladder/biliary tree: No calcified gallstones or pericholecysticinflammatory change. Common bile duct does not appear dilated. Spleen: No abnormality detected. Pancreas: No abnormality detected. Adrenal glands: Hypodense thickening of the left adrenal gland as seenwith hyperplasia. No right adrenal nodule. Kidneys/ureters: No hydronephrosis or perinephric fat stranding. 2.2 cmcyst arising from the left upper kidney. No renal or definite ureteralstones. Vasculature: Minimal atherosclerotic calcifications. No abdominal aorticaneurysm. Peritoneum: No evidence of free intraperitoneal air, free fluid, ororganized collection. Lymph nodes: No lymphadenopathy detected. Bowel: Moderate stool volume in the colon. No evidence of a bowelobstruction. No bowel inflammatory changes. Normal appendix. Mild sigmoiddiverticulosis. Small hiatal hernia. Body wall: Tiny fat-containing bilateral inguinal hernias, left greaterthan right. Bladder: Underdistended. No definite abnormality. Reproductive: Right ovary appears prominent for patient age. No uterine orleft ovarian abnormality detected. Bones: Multilevel degenerative changes in the spine. Grade 1anterolisthesis of L5 on S1. 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 IMPRESSION: No evidence of an acute abdominal or pelvic process. Prominent appearing right ovary. Recommend pelvic ultrasound for furtherevaluation. A copy of this report will be provided to the [facility] FINDProgram. POS - [id number] -------- FINAL REPORT -------- Dictated By: Samantha Burch Dictated Date: 05/05/2025 08:57 ET Assigned Physician: Samantha Burch Reviewed and Electronically Signed By: Samantha Burch Signed Date: 05/06/2025 09:17 ET Workstation ID: [id number] Transcribed By: Self Edit Transcribed Date: 05/05/2025 09:52 ET us Nandini Woody MCNALLY IMG CT PROCEDURES Final Result * Lipid panel with reflex to direct LDL (02/24/2025 7:53 AM EDT) Cholesterol 171 0 - 200 mg/dL LAB CHEMISTRY METHOD 02/24/2025 2:23 PM EDT [facility] Triglycerides 53 0 - 150 mg/dL LAB CHEMISTRY METHOD 02/24/2025 2:23 PM EDT [facility] HDL 80 >=40 mg/dL LAB CHEMISTRY METHOD 02/24/2025 2:23 PM EDT [facility] LDL Calculated 80 0 - 100 mg/dL LAB CHEMISTRY METHOD 02/24/2025 2:23 PM EDT [facility] VLDL Cholesterol Jay 10.6 mg/dL LAB CHEMISTRY METHOD 02/24/2025 2:23 PM EDT [facility] Non HDL Chol. (LDL+VLDL) 91 <145 mg/dL LAB CHEMISTRY METHOD 02/24/2025 2:23 PM EDT [facility] Chol/HDL Ratio 2.1 0.0 - 4.4 LAB CHEMISTRY METHOD 02/24/2025 2:23 PM T [facility] Blood Venous blood specimen / Unknown Venipuncture / Unknown 02/24/2025 7:53 AM EDT 02/24/2025 7:53 AM EDT us Derek MCNALLY LAB BLOOD ORDERABLES Ansley l Result [facility] [address] [place] [address], [place] [phone] * Comprehensive metabolic panel (02/24/2025 7:53 AM EDT) Sodium 142 133 - 145 mmol/L LAB CHEMISTRY METHOD 02/24/2025 2:23 PM EDT [facility] Potassium 4.2 3.5 - 5.5 mmol/L LAB CHEMISTRY METHOD 02/24/2025 2:23 PM [facility] Chloride 108 96 - 110 mmol/L LAB CHEMISTRY METHOD 02/24/2025 2:23 PM [facility] CO2 28 21 - 32 mmol/L LAB CHEMISTRY METHOD 02/24/2025 2:23 PM [facility] Anion Gap 6 3 - 11 LAB CHEMISTRY METHOD 02/24/2025 2:23 PM [facility] Glucose 86 70 - 100 mg/dL LAB CHEMISTRY METHOD 02/24/2025 2:23 PM [facility] BUN 14 5 - 25 mg/dL LAB CHEMISTRY METHOD 02/24/2025 2:23 PM [facility] Creatinine 0.77 0.50 - 1.10 mg/dL LAB CHEMISTRY METHOD 02/24/2025 2:23 PM [facility] eGFR 78 >=60 mL/min/1. 73m2 LAB CHEMISTRY METHOD 02/24/2025 2:23 PM [facility] Comment:Calculation based on the Chronic Kidney Disease Epidemiology Collaboration (CKD-EPI) equation refit without adjustment for race. BUN/Creatinine Ratio 18.2 LAB CHEMISTRY METHOD 02/24/2025 2:23 PM [facility] Calcium 9.1 8.5 - 10.5 mg/dL LAB CHEMISTRY METHOD 02/24/2025 2:23 PM [facility] AST (SGOT) 27 10 - 42 unit/L LAB CHEMISTRY METHOD 02/24/2025 2:23 PM [facility] ALT (SGPT) 25 10 - 60 unit/L LAB CHEMISTRY METHOD 02/24/2025 2:23 PM [facility] Alkaline Phosphatase 59 42 - 121 unit/L LAB CHEMISTRY METHOD 02/24/2025 2:23 PM [facility] Total Protein 6.8 6.0 - 8.0 g/dL LAB CHEMISTRY METHOD 02/24/2025 2:23 PM EDT [facility] Albumin 3.6 3.2 - 5.0 g/dL LAB CHEMISTRY METHOD 02/24/2025 2:23 PM EDT [facility] Total Bilirubin 0.6 0.0 - 1.4 mg/dL LAB CHEMISTRY METHOD 02/24/2025 2:23 PM EDT [facility] Blood Venous blood specimen / Unknown Venipuncture / Unknown 02/24/2025 7:53 AM EDT 02/24/2025 7:53 AM EDT Derek MCNALLY LAB BLOOD ORDERABLES Ansley stone Result [facility] [address] [place] [address], [place] [phone] * Depression Screening (04/22/2024) [facility] Depression Screening abstracted Historical Provider HEALTH MAINTENANCE Final Result * DXA BONE DENSITY STUDY 1+ SITS AXIAL SKEL (12/05/2023 9:19 AM EDT) Anatomical Region Laterality Modality Bone Densitometr y 10/15/2023 8:57 AM EST Narrative 12/05/2023 1:24 PM EDT BONE DENSITY Lumbar Spine T-score is -0.9 (SD relative to 20-29 y/o adult) Z-score is +1.8 (SD relative to age matched peers) This is normal by criteria defined by the WHO. Left Hip T-score is -2.7 Z-score is -0.4 This is consistent with osteoporosis by criteria defined by the WHO. Comparison exam(s): no statistically significant change in the bone density of the hip and lumbar spine when compared to most recent bone density examination Confidence level is +/-95%. Impression: Based on the World Health Organization criteria, Callie Andrews should be classified as having osteoporosis. The [facility] Department of Internal Medicine recommends using National Osteoporosis Foundation (NOF) guidelines in treatment decisions related to osteoporosis. NOF guidelines suggest considering treatment for postmenopausal women and men aged 50 or older presenting with the following: History of hip or vertebral fracture. T-score less than or equal to -2.5 (DXA) at the femoral neck, total hip, or spine, after appropriate evaluation to exclude secondary causes. Low bone mass (T-score between -1.0 and -2.5 at the femoral neck or spine) AND a 10-year probability of a hip fracture greater than or equal to 3% OR a 10-year probability of a major osteoporosis-related fracture greater than or equal to 20% based on the [place]-adapted WHO algorithm Please note that all treatment decisions require clinical judgment and consideration of individual patient factors, including patient preferences, co-morbidities, previous drug use, risk factors not captured in the FRAX model (e.g., frailty, falls, vitamin D deficiency, increased bone turnover, interval significant decline in bone density) and possible under- or over-estimation of fracture risk by FRAX. Procedure Note Cristian Francisco MD - 05/05/2024 BONE DENSITY Lumbar Spine T-score is -0.9 (SD relative to 20-29 y/o adult) Z-score is +1.8 (SD relative to age matched peers) This is normal by criteria defined by the WHO. Left Hip T-score is -2.7 Z-score is -0.4 This is consistent with osteoporosis by criteria defined by the WHO. Comparison exam(s): no statistically significant change in the bonedensity of the hip and lumbar spine when compared to most recent bonedensity examination Confidence level is +/-95%. Impression: Based on the World Health Organization criteria, Callie Andrews shouldbe classified as having osteoporosis. The [facility] Department of Internal Medicine recommendsusing National Osteoporosis Foundation (NOF) guidelines in treatmentdecisions related to osteoporosis. NOF guidelines suggest consideringtreatment for postmenopausal women and men aged 50 or older presentingwith the following: History of hip or vertebral fracture. T-score less than or equal to -2.5 (DXA) at the femoral neck, total hip,or spine, after appropriate evaluation to exclude secondary causes. Low bone mass (T-score between -1.0 and -2.5 at the femoral neck or spine)AND a 10-year probability of a hip fracture greater than or equal to 3% ORa 10-year probability of a major osteoporosis-related fracture greaterthan or equal to 20% based on the [place]-adapted WHO algorithm Please note that all treatment decisions require clinical judgment andconsideration of individual patient factors, including patientpreferences, co-morbidities, previous drug use, risk factors not capturedin the FRAX model (e.g., frailty, falls, vitamin D deficiency, increasedbone turnover, interval significant decline in bone density) and possibleunder- or over-estimation of fracture risk by FRAX. Derek MCNALLY IMKareem DXA PROCEDURES Final Result from Last 3 Months or Most Recently Relevant to Health Maintenance Insurance [facility]IC[facility] Care Teams Processing Analyst Relationship Specialty Start Date End Date Derek Sams PA [address] [place] [id number] PCP - General Internal Medicine 09/09/20
== END 2025-07-14 14:43 | disposition home or self-care (01) ==
LOC: HO.HWS 11:30
PROVIDERS: PCP Physician Assistant Medical; Visit Provider Obstetrics & Gynecology
DX: R19.00 Intra-abdominal and pelvic swelling, mass and lump, unspecified site (principal)
CPT/HCPCS: 99203

== ENCOUNTER → 2025-07-14 11:30 | Outpatient (BNVA) | payer MEDICARE, SELFPAY | PROVIDERS: PCP Physician Assistant Medical; Visit Provider Obstetrics & Gynecology | DX: R19.00 Intra-abdominal and pelvic swelling, mass and lump, unspecified site (principal) | CPT/HCPCS: 99202 ==

== ENCOUNTER 2025-07-15 14:52 | Outpatient (REF) | payer MEDICARE, SELFPAY ==
--- OUTSIDE RECORDS SUMMARY | 2024-01-17 04:00 | XMS_ITS ---
Author Organization [facility] Address [address] [place] [id number] Care Team Providers [employer] Est[employer]ator Name Role Phone Derek Amaod Primary Care Provider Sona Gomez Unavailable [phone] Mukesh Mabry [phone] Sutton Encounters Encounter Location Date Provider Diagnosis [address] [address] 01/17/2024 Mukesh Mabry Plan Of Treatment Next Appt Details Provider Name:Sona De Souza victor manuel, 10/15/2025 09:00:00 AM, [address] [place] [address], [phone], Progress Notes * Callie ANDREWS RDOB:[birth year] (80 yo F)Acc No.[id number]:01/17/2024 Progress Note Patient: Callie DHILLON Provider: Mando Perez DPM :1945 A ge:78 Y S ex:Female Date:01/17/2024 Address:[address] [place] [address] Pcp:DALI Quiroga Subjective: * Chief Complaints: * [address] Sutton[address] * Medical History: Objective: * Vitals: Assessment: Plan: * Treatment: * Images: * The named appointment provid er may or may not be the originator of this progress note, and it is not deemed complete until electronically signed by the appointment provider. Sign off status: Pending * Provider: Mando Perez DPM Date: 0 01/17/2024 Generated for Bruce Gaxiola on: 07:17 PM EDT
--- OUTSIDE RECORDS SUMMARY | 2024-12-29 05:00 | XMS_ITS ---
Author Organization [facility] Address [address] [place] [address] Care Team Providers Care Shallot Cleaner Name Role Phone Derek Amado Primary Care Provider Unav kariSona Phelan Unavailable [phone] Allergies No Known Allergies REASON FOR VISIT [...] Ordered Date Performed Result Body Sit e 00426-JZGLHIK NAIL, 6 OR MORE 12/29/2024 N/A Encounters Encounter Location Date Provider Diagnosis [facility] [address] [address] 12/29/2024 Sona Thomas Pain in right toe(s) M79.674 ; Onychomycosis B35.1 and Pain in left toe(s) M79.675 Assessments Encounter Date Diagnosis (ICD Code) Assessment Notes Treatment Notes Treatment Clinical Notes Section Notes 12/29/2024 Pain in right toe(s) (ICD-10 - M79.674) 12/29/2024 Onychomycosis (ICD-10 - B35.1) 12/29/2024 Pain in left toe(s) (ICD-10 - M79.675) Plan Of Treatment Pending Test Test Name Order Date [id number] NAIL, 6 OR MORE 12/29/2024 Next Appt Details Follow Up: 3 Months, Reason: Provider Name:Sona rush, 10/15/2025 09:00:00 AM, [address] [place] [address], [phone], Procedure Notes * Category Sub-Category Detail Notes [...] use of a nail nipper and/or dremel-type cutter grinder, to a more viable healthy nail plate [...] to maintain effectiveness in symptomatic relief - 28208 Progress Notes * Callie ANDREWS RDOB:[birth year] (80 yo F)Acc No.[id number]:12/29/2024 Progress Note Patient: Callie DHILLON Provider: Daylin Thomas DPM :1945 A ge:79 Y S ex:Female Date:12/29/2024 Address:[address] [place], [place] [id number] Pcp:DALI Quiroga Subjective: * Chief Complaints: * [...] enies. C ardiovascular: Pacemaker d enies. 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 W PW d enies. C [...] work, housework. Marital status: . 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 D rug/Alcohol: A SANDRA-C (Standard) D id [...] use of a nail nipper and/or dremel-type cutter grinder, to a more viable healthy nail plate [...] to maintain effectiveness in symptomatic relief - 53091. * Procedure Codes: 1 1721 DEBRIDE NAIL, [...] 0 12/29/2024 Generated for Bruce araiza/Mily/Edi on: 07:18 PM EDT History and Physical Notes * HPI (History [...]
--- OUTSIDE RECORDS SUMMARY | 2025-07-13 05:00 | XMS_ITS ---
Author Organization [facility] Address [address] [place] [address] Care Team Providers Care Tipple Operator Name Role Phone Derek Amado Primary Care Provider Unav sherry Thomas Sona Unavailable [phone] Allergies No Known Allergies REASON FOR VISIT Painful nail(s) aggravated by shoes causing difficulty standing/walking Medications Medication SIG (Take, Route, Frequency, Duration) Notes Start Date End Date Status Nitro-Bid 2 % as directed Transder mal apply bid to toes; Duration: 30 days Not-Taking Keflex 500 MG 1 capsule Orally desiree ry 12 hrs; Duration: 14 days Not-Taking Fish Oil 1000 MG 1 capsule Orally Onc e a day Active Multi Vit/Fl 0.25 MG 1 tablet Orally Onc e a day Active Keflex 500 MG 1 capsule Orally desiree ry 12 hrs; Duration: 14 days 03/29/2016 Not-Taking aspirin Active Calcium 1 tab Oral Active Evista Active Losartan Potassium 25 MG 1 tablet Orally Once a day; Duration: 30 day(s) Active Social History Tobacco Use: Social History [...] Signs Height 5 ft 5 in in 07/13/2025 Weight 150 lbs 07/13/2025 BMI 24.96 kg/m2 07/13/2025 Blood pressure systolic 127 mm Hg 07/13/20 25 Blood pressure diastolic 65 mm Hg 025 Procedures Procedure Date Ordered Date Performed Result Body Sit e 84548-PCRHHKL NAIL, 6 OR MORE 07/13/2025 N/A Encounters Encounter Location Date Provider Diagnosis [facility] [address] [address] 07/13/2025 Sona Thomas Pain in right toe(s) M79.674 ; Onychomycosis B35.1 and Pain in left toe(s) M79.675 Assessments Encounter Date Diagnosis (ICD Code) Assessment Notes Treatment Notes Treatment Clinical Notes Section Notes 07/13/2025 Pain in right toe(s) (ICD-10 - M79.674) 07/13/2025 Onychomycosis (ICD-10 - B35.1) 07/13/2025 Pain in left toe(s) (ICD-10 - M79.675) Plan Of Treatment Pending Test Test Name Order Date [id number] NAIL, 6 OR MORE 07/13/2025 Next Appt Details Follow Up: 3 Months, Reason: Provider Name:Sona rush, 10/15/2025 09:00:00 AM, [address] [place] [address], [phone], Procedure Notes * Category Sub-Category Detail Notes [...] use of a nail nipper and/or dremel-type terrazzo grinder, to a more viable healthy nail [...] to maintain effectiveness in symptomatic relief - 07226 Progress Notes * Callie ANDREWS RDOB:[birth year] (80 yo F)Acc No.[id number]:07/13/2025 Progress Note Patient: Callie DHILLON Provider: Daylin Thomas DPM :1945 A ge:80 Y S ex:Female Date:07/13/2025 Address:[address] [place], [place] [id number] Pcp:DALI Quiroga Subjective: * Chief Complaints: * P ainful nail(s) aggravated by shoes causing difficulty standing/walking * HPI: P ainful Nails: Pt States Last PCP Visit: D ate: 0 04/08/2025 * ROS: G eneral/Constitutional: Nausea d enies. [...] enies. C ardiovascular: Pacemaker d enies. M LEAD APPLIER d enies. W PW d enies. C [...] T remors d enies. * Medical History: * Surgical History: B il cataract surgery 12/12/21,12/26/21 * Hospitalization/Major Diagno stic Procedure: D enies Past Hospitalization * Family History: M other: , diagnosed with Unspecified heart disease, Family history of arthritis. F ather: , diagnosed with Unspecified heart disease. * Social History: T obacco Use: T obacco use other than smoking A re you an other tobacco user? N o Tobacco Control (Standard) T obacco use: N onsmoker A dditional Findings: Tobacco non-user C urrent nonsmoker M iscellaneous: C affeine: no. Children: no. Exercise: yes, gardening/yard work, housework. Marital status: . 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 D rug/Alcohol: A SANDRA-C (Standard) D id you have a drink containing alcohol in the past year? N o P oints 0 I nterpretation N egative * Medications: T akingEvista Losartan Potassium 25 MG Tablet 1 tablet Orally Once a day aspirin Calcium 1 tab Oral Fish Oil 1000 MG Capsule 1 capsule Orally Once a day Multi Vit/Fl 0.25 MG Tablet Chewable 1 tablet Orally Once a day Taking Evista Taking Losartan Potassium 25 MG Tablet 1 tablet Orally Once a day Taking aspirin Taking Calcium 1 tab Oral Taking Fish Oil 1000 MG Capsule 1 capsule Orally Once a day Taking Multi Vit/Fl 0.25 MG Tablet Chewable 1 tablet Orally Once a day Not-Taking/PRNNitro-Bid 2 % Ointment as directed Transdermal apply bid to toes Keflex 500 MG Capsule 1 capsule Orally every 12 hrs Keflex 500 MG Capsule 1 capsule Orally every 12 hrs Medication List reviewed and reconciled with the patientNot-Taking/PRN Nitro-Bid 2 % Ointment as directed Transdermal apply bid to toes Not-Taking/PRN Keflex 500 MG Capsule 1 capsule Orally every 12 hrs Not-Taking/PRN Keflex 500 MG Capsule 1 capsule Orally every 12 hrs Medication List reviewed and reconciled with the patient * Allergies: N .K.D.A.yes[Allergies Verified] Objective: * Vitals: H t: 5 ft 5 in, Wt: 150, BMI: 24.96, Shoe size: 9, BP: 127/65 mm Hg, Wt-k.04 kg. * Examination: N ails: NAILS are: [...] use of a nail nipper and/or dremel-type terrazzo grinder, to a more viable healthy nail [...] to maintain effectiveness in symptomatic relief - 37609. * Procedure Codes: 1 1721 DEBRIDE NAIL, 6 OR MORE * Follow Up: 3 Months * Images: * Sign off status: Completed true * Provider: Daylin Thomas DPM Date: Generated for Bruce araiza/Mily/Adriánitting on: 07:18 PM EDT History and Physical Notes * HPI (History of Present Illness) Category Sub-Category Detail Notes Category Not es Painful Nails Pt States Last PCP Visit: Date:: 04/08/2025 Examination Category Sub-Category Detail Notes Category Not es Nails NAILS are: Elongated, overg rown, dystrophic, lytic, greater than 3mm thick, discolored and friable with crumbly malodorous subungual debris, with pain on palpation, TA, T1, T2, T3, T4, T5, T6, T7, T8, T9-
--- NOTE | ~2025-07-15 | MR_ITS ---
EXAMINATION: MR PELVIS WITHOUT AND WITH CONTRAST CLINICAL INFORMATION: R19.00. Intra-abdominal and pelvic swelling. COMPARISON: None available. TECHNIQUE: Multiplanar, multisequence MRI pelvis/sacrococcyx without and following the IV contrast administration 7 cc of gadolinium based (Gadavist) without reported immediate complications. FINDINGS: Patient's breathing motion artifact. Bone marrow T2 fat-sat signal within the superior aspect of the right and to a lesser extent left sacroiliac joint, alar of the sacrum and posterior right iliac bone. No abnormal enhancement. Spondylosis at L5-S1 resulting in grade 1 anterolisthesis. Bone marrow T2 fat-sat signal in the posterior elements of L5-S1/facet joints. Abundant stool within the rectosigmoid colon. The uterus measures 4 x 1.4 cm in the craniocaudal and AP dimensions respectively. There is questionable 1.8 cm uterine fibroid to the right side of the uterus. There is trace of fluid in the coxofemoral joints. Bone marrow inhomogeneity. Spina bifida occulta in the sacrum. No inguinal hernias. No gross lymphadenopathy. Bladder is fluid-filled. Tarlov cysts in the right S3 and likely on the left S2 4. Levoconvex rotoscoliosis of the lumbar spine no fully included in the exam. There are multiple hyperintense T2 cystic lesions throughout the liver parenchyma. Multifocal cystic lesions in the kidneys. Liver measures 14 cm. Spleen measures 9 cm. MR/MR pelvis wo/w con IMPRESSION: Probable sacroiliitis, right greater than the left side. Probable 1.8 cm uterine fibroid. Grade 1 anterolisthesis L5-S1. Levoconvex rotoscoliosis, lumbar spine. Spina bifida occulta, sacrum and associated Tarlov cysts. Multifocal cystic lesions, liver and kidney. Electronically signed by: Bro Lemus MD 07/15/2025 03:48 PM EDT
--- OUTSIDE RECORDS SUMMARY | 2025-07-15 19:17 | XMS_ITS ---
Author Name [facility] Organization Unknown Care Team Organization Name Specialty Phone Email Start Date End Da te [facility] 05/06/2025 [facility] Derek Sams Primary Care 02/23/2023
--- OUTSIDE RECORDS SUMMARY | 2025-07-15 19:18 | XMS_ITS ---
Author Organization [facility] [address] [place] [address] [place], [place] [address]y [place] Phone Care Team Providers Care Climate Change Analyst Name Role Phone Derek Sams Primary Care Provider [phone] Active Problems Problem Noted Date Diagnosed Date [...]
--- OUTSIDE RECORDS SUMMARY | 2025-07-15 19:18 | XMS_ITS | Patient Health Record ---
Author Organization [facility] Address [address] [place] [address] Care Team Providers Care Director International Name Role Phone Derek Amado Primary Care Provider Sona Gomez Unavailable [phone] Allergies No Known Allergies Reason For Referral No Information Medications Medication SIG (Take, Route, Frequency, Duration) [...] tablet Orally Onc e a day Active aspirin Active Calcium 1 tab Oral Active Evista Active Losartan Potassium 25 MG 1 tablet Orally Once a day; Duration: 30 day(s) Active Keflex 500 MG 1 capsule Orally desiree ry 12 hrs; Duration: 14 days 03/29/2016 Not-Taking Immunizations Vaccine Route Administration Date Status Comme nts Influenza Unknown 05/25/2022 Administered Influenza Unknown 06/17/2024 Administered Influenza Unknown 06/17/2025 Administered COVID-19 Pfizer BioNTech Vaccine Unknown 05/25/2022 Administered 1st 10/31/20,11/21/20 06/29/21 Social History Tobacco Use: Social History Observation [...] ast year? No Points 0 Interpretation Negative Problems Problem Type SNOMED Code ICD Code Onset Dates Problem Status W/U Status Risk Notes Problem Tinea unguium (296248076) Tinea unguium (B35.1) Active confirmed Vital Signs Blood pressure diastolic 65 mm Hg 07/13/2025 Height 5 ft 5 in in 07/13/2025 Blood pressure systolic 127 mm Hg 07/13/2025 Weight 150 lbs 07/13/2025 BMI 24.96 kg/m2 07/13/2025 Procedures Procedure Date Ordered Date Performed Result Body Sit e 95318-RSFZNRW NAIL, 6 OR MORE 08/06/2024 N/A 81360-RVXAKJU NAIL, 6 OR MORE 12/29/2024 N/A 29713-YYTINYG NAIL, 6 OR MORE 04/02/2025 N/A 80847-ATUDCFD NAIL, 6 OR MORE 07/13/2025 N/A Encounters Encounter Location Date Provider Diagnosis [address] [address] 12/29/2024 Sona Thomas Pain in right toe(s) M79.674 ; Onychomycosis B35.1 and Pain in left toe(s) M79.[address] [address] 08/06/2024 Sona Estradaaker Tinea unguium B35.1 ; Pain in right toe(s) M79.674 and Pain in left toe(s) M79.[address] [address] 04/02/2025 Sona Thomas Pain in right toe(s) M79.674 ; Onychomycosis B35.1 and Pain in left toe(s) M79.[address] [address] 07/13/2025 Sona Thomas Pain in right toe(s) M79.674 ; Onychomycosis B35.1 and Pain in left toe(s) M79.675 Assessments Encounter Date Diagnosis (ICD Code) Assessment Notes Treatment Notes Treatment Clinical Notes Section Notes 08/06/2024 Tinea unguium (ICD-10 - B35.1) 08/06/2024 Pain in right toe(s) (ICD-10 - M79.674) 12/29/2024 Pain in right toe(s) (ICD-10 - M79.674) 04/02/2025 Pain in right toe(s) (ICD-10 - M79.674) 07/13/2025 Pain in right toe(s) (ICD-10 - M79.674) 07/13/2025 Onychomycosis (ICD-10 - B35.1) 04/02/2025 Onychomycosis (ICD-10 - B35.1) 12/29/2024 Onychomycosis (ICD-10 - B35.1) 08/06/2024 Pain in left toe(s) (ICD-10 - M79.675) 12/29/2024 Pain in left toe(s) (ICD-10 - M79.675) 04/02/2025 Pain in left toe(s) (ICD-10 - M79.675) 07/13/2025 Pain in left toe(s) (ICD-10 - M79.675) Plan Of Treatment Pending Test Test Name Order Date 79968-JWFNQTI NAIL, 6 OR MORE 12/29/2024 14513-UKUISXJ NAIL, 6 OR MORE 12/08/2015 30643-BDQWYAN NAIL, 6 OR MORE 07/17/2018 14999-LTJYULV NAIL, 6 OR MORE 08/06/2024 87785-RKSKFQS NAIL, 6 OR MORE 04/02/2025 81138-HVOJMTQ NAIL, 6 OR MORE 07/13/2025 35042-ZPLIDML NAIL, 1-5 08/30/2016 56947-NZSSUNG NAIL, -5 12/11/2016 85331-NLSYTPE NAIL, -5 02/28/2016 08034-TMCGFTT NAIL, -05/31/2016 26475-DXXJGMH NAIL, -5 12/25/2013 13706-OKQNUMT NAIL, -06/09/2015 51515-ODRWFMI NAIL, -5 09/01/2015 59032-Ckll Destruction, -14 06/09/2015 76961-Ogkn Destruction, -07/08/2015 72218-Bkny Destruction, 1-14 09/01/2015 97917-Dxno Destruction, 1-14 12/11/2016 35517-Yluo Destruction, -04/17/2018 93770-Dbxs Destruction, -14 07/17/2018 31857-Qunslxti Plate 06/09/2015 50622-Blzdrqnj Plate 12/25/2013 63193-FSJ 03/13/2016 39833-LZV 02/28/2016 28442- Debride <25 sq cm 03/13/2016 00384- Debride <25 sq cm 03/29/2016 40998- Debride <25 sq cm 04/17/2016 99996- Debride <25 sq cm 05/31/2016 Next Appt Details Provider Name:Sona De Souza victor manuel, 10/15/2025 09:00:00 AM, [address] [place], [address], Insurance Providers Payer Name Payer Address Payer Phone Subscriber Number Group Number Insured Name Patient Relationship to Insured Coverage Start Date Coverage End Date Medicare National Govt [employer] [address] [place] [address] [id number] Callie Lara Self - patient is the insured [employer] [address] [place] [address] [phone] [id number] Callie Lara Self - patient is the insured Medical (General) History Medical History History ICD Code Neuropathy Measles Chicken pox Surgical History Surgery Date(Month/Year) Philip cataract surgery 12/12/21,12/26/21
--- OUTSIDE RECORDS SUMMARY | 2025-07-15 19:18 | XMS_ITS | Clinical Summary ---
Author Organization [facility] [address] [place] [address] Address [address] [facility] [place] Phone Care Team Providers Care It Risk And Assurance Senior Manager Name Role Phone Derek Sams Primary Care Provider [phone] Allergies No known active allergies Medications calcium [...] Team Description 06/19/2025 Results Follow-Up Adult Medicine [address] [phone] Nandini Mckay, PA 06/17/2025 9:46 AM EDT - 06/17/2025 11:59 PM EDT Hospital Encounter Radiology Department - [address] [phone] Enlarged ovary Discharge Disposition: Home or Self Care 05/13/2025 8:59 AM EDT - 05/13/2025 11:59 PM EDT Hospital Encounter Radiology Department - [address] [phone] Enlarged ovary Discharge Disposition: Home or Self Care 05/05/2025 8:34 AM EDT - 05/05/2025 11:59 PM EDT Hospital Encounter CT Scan - [address] [phone] Abdominal bloating; Weight loss; Constipation, unspecified constipation type Discharge Disposition: Home or Self Care 04/27/2025 11:00 AM EDT Office Visit Adult Medicine [address] [phone] Nandini Mckay PA Primary hypertension (Primary Dx); [...] HISTORICAL COLONOSCOPY; COMMENT: negative COLONOSCOPY 09/17/2012 PROCEDURE: [place] COLONOSCOPY FLX DX W/COLLJ SPEC WHEN PFRMD; COMMENT: no polyps ESOPHAGOGASTRODUODENOSCOPY 09/17/2013 PROCEDURE: [place] ESOPHAGOGASTRODUODENOSCOPY TRANSORAL DIAGNOSTIC; COMMENT: small HH; non-obstructive [...] hiv Brother 3 Alive Father (Age 82) PA DM 4 S IBS 1 HIV 1 SISTER WITH BREAST CANCER [...] 10/30/2025 8:15 AM EST Office Visit Adult [address] [address] Derek Sams PA [address] [place] [phone] Health Maintenance Due Date Last Done Comments [...] Signed Date: 06/17/2025 20:59 ET Workstation ID: [id number] Transcribed By: Self Edit Transcribed Date: 06/17/2025 [...] Signed Date: 06/17/2025 20:59 ET Workstation ID: [id number] Transcribed By: Self Edit Transcribed Date: 06/17/2025 [...] Signed Date: 05/13/2025 13:54 ET Workstation ID: [id number] Transcribed By: Self Edit Transcribed Date: 05/13/2025 [...] furtherevaluation -------- FINAL REPORT -------- Dictated By: Anderz Herrera Dictated Date: 05/13/2025 13:49 ET Assigned Physician: Andrez Herrera Reviewed and Electronically Signed By: Andrez Herrera Signed Date: 05/13/2025 13:54 ET Workstation ID: [id number] Transcribed By: Self Edit Transcribed Date: 05/13/2025 13:49 ET us Nandini Mckay PA IMG US PROCEDURES Final Result * Helicobacter pylori breath test (05/13/2025 9:52 AM EDT) H Pylori Breath Test Negative Negative LAB CHEMISTRY METHOD 05/13/2025 1:56 PM EDT [facility] Breath Oral cavity structure / Unknown Non-blood Collection / Unknown 05/13/2025 9:52 AM EDT 05/13/2025 9:52 AM EDT us Nandini Mckay PA LAB BODY FLUIDS AND STOOLS ORDER CORNELIUS Final Result [facility] [address] [place] [address], [place] [phone] * CT Abdomen Pelvis wo Contrast (05/05/2025 8:55 AM EDT) Anatomical Region Laterality Modality Body Computed Tomogra phy 05/05/2025 8:57 AM EDT Impressions 05/06/2025 9:17 AM EDT No evidence of an acute abdominal or pelvic process. Prominent appearing right ovary. Recommend pelvic ultrasound for further evaluation. A copy of this report will be provided to the [facility] FIND Program. POS - [id number] -------- FINAL REPORT -------- Dictated By: Samantha Burch Dictated Date: 05/05/2025 08:57 ET Assigned Physician: Samantha Burch Reviewed and Electronically Signed By: Samantha Burch Signed Date: 05/06/2025 09:17 ET Workstation ID: [id number] Transcribed By: Self Edit Transcribed Date: 05/05/2025 [...] this report will be provided to the [facility] FINDProgram. POS - [id number] -------- FINAL REPORT -------- Dictated By: Samantha Burch Dictated Date: 05/05/2025 08:57 ET Assigned Physician: Samantha Burch Reviewed and Electronically Signed By: Samantha Burch Signed Date: 05/06/2025 09:17 ET Workstation ID: [id number] Transcribed By: Self Edit Transcribed Date: 05/05/2025 09:52 ET us Nandini Woody MCNALLY IMG CT PROCEDURES Final Result * Lipid panel with reflex to direct LDL (02/24/2025 7:53 AM EDT) Cholesterol 171 0 - 200 mg/dL LAB CHEMISTRY METHOD 02/24/2025 2:23 PM EDT [facility] Triglycerides 53 0 - 150 mg/dL LAB CHEMISTRY METHOD 02/24/2025 2:23 PM EDT [facility] HDL 80 >=40 mg/dL LAB CHEMISTRY METHOD 02/24/2025 2:23 PM EDT [facility] LDL Calculated 80 0 - 100 mg/dL LAB CHEMISTRY METHOD 02/24/2025 2:23 PM EDT [facility] VLDL Cholesterol Jay 10.6 mg/dL LAB CHEMISTRY METHOD 02/24/2025 2:23 PM EDT [facility] Non HDL Chol. (LDL+VLDL) 91 <145 mg/dL LAB CHEMISTRY METHOD 02/24/2025 2:23 PM EDT [facility] Chol/HDL Ratio 2.1 0.0 - 4.4 LAB CHEMISTRY METHOD 02/24/2025 2:23 PM T [facility] Blood Venous blood specimen / Unknown Venipuncture / Unknown 02/24/2025 7:53 AM EDT 02/24/2025 7:53 AM EDT us Derek MCNALLY LAB BLOOD ORDERABLES Ansley l Result [facility] [address] [place] [address], [place] [phone] * Comprehensive metabolic panel (02/24/2025 7:53 AM EDT) Sodium 142 133 - 145 mmol/L LAB CHEMISTRY METHOD 02/24/2025 2:23 PM EDT [facility] Potassium 4.2 3.5 - 5.5 mmol/L LAB CHEMISTRY METHOD 02/24/2025 2:23 PM [facility] Chloride 108 96 - 110 mmol/L LAB CHEMISTRY METHOD 02/24/2025 2:23 PM [facility] CO2 28 21 - 32 mmol/L LAB CHEMISTRY METHOD 02/24/2025 2:23 PM [facility] Anion Gap 6 3 - 11 LAB CHEMISTRY METHOD 02/24/2025 2:23 PM [facility] Glucose 86 70 - 100 mg/dL LAB CHEMISTRY METHOD 02/24/2025 2:23 PM [facility] BUN 14 5 - 25 mg/dL LAB CHEMISTRY METHOD 02/24/2025 2:23 PM [facility] Creatinine 0.77 0.50 - 1.10 mg/dL LAB CHEMISTRY METHOD 02/24/2025 2:23 PM [facility] eGFR 78 >=60 mL/min/1. 73m2 LAB CHEMISTRY METHOD 02/24/2025 2:23 PM [facility] Comment:Calculation based on the Chronic Kidney Disease Epidemiology Collaboration (CKD-EPI) equation refit without adjustment for race. BUN/Creatinine Ratio 18.2 LAB CHEMISTRY METHOD 02/24/2025 2:23 PM [facility] Calcium 9.1 8.5 - 10.5 mg/dL LAB CHEMISTRY METHOD 02/24/2025 2:23 PM [facility] AST (SGOT) 27 10 - 42 unit/L LAB CHEMISTRY METHOD 02/24/2025 2:23 PM [facility] ALT (SGPT) 25 10 - 60 unit/L LAB CHEMISTRY METHOD 02/24/2025 2:23 PM [facility] Alkaline Phosphatase 59 42 - 121 unit/L LAB CHEMISTRY METHOD 02/24/2025 2:23 PM [facility] Total Protein 6.8 6.0 - 8.0 g/dL LAB CHEMISTRY METHOD 02/24/2025 2:23 PM EDT [facility] Albumin 3.6 3.2 - 5.0 g/dL LAB CHEMISTRY METHOD 02/24/2025 2:23 PM EDT [facility] Total Bilirubin 0.6 0.0 - 1.4 mg/dL LAB CHEMISTRY METHOD 02/24/2025 2:23 PM EDT [facility] Blood Venous blood specimen / Unknown Venipuncture / Unknown 02/24/2025 7:53 AM EDT 02/24/2025 7:53 AM EDT Derek MCNALLY LAB BLOOD ORDERABLES Ansley stone Result [facility] [address] [place] [address], [place] [phone] * Depression Screening (04/22/2024) [facility] Depression Screening abstracted Historical Provider HEALTH MAINTENANCE [...] should be classified as having osteoporosis. [facility] Department of Internal Medicine recommends using National [...] Andrews shouldbe classified as having osteoporosis. [facility] Department of Internal Medicine recommendsusing National Osteoporosis [...] Recently Relevant to Health Maintenance Insurance MEDICARE [facility] Care Teams It Risk And Assurance Senior Manager Relationship Specialty Start Date End Date Derek Sams PA [address] [place] [id number] PCP - General Internal Medicine 09/09/20
== END 2025-07-15 14:53 | disposition home or self-care (01) ==
LOC: HO.MRI 14:52
PROVIDERS: PCP Physician Assistant Medical; Visit Provider Obstetrics & Gynecology
DX: R19.00 Intra-abdominal and pelvic swelling, mass and lump, unspecified site (principal)
CPT/HCPCS: 72197; A9585

== ENCOUNTER → 2025-07-15 14:52 | Outpatient (BNV) | payer MEDICARE, SELFPAY | PROVIDERS: PCP Physician Assistant Medical; Visit Provider Radiology Diagnostic Radiology | DX: N28.1 Cyst of kidney, acquired (principal); K76.89 Other specified diseases of liver; Q76.0 Spina bifida occulta; G96.191 Perineural cyst; M41.86 Other forms of scoliosis, lumbar region | CPT/HCPCS: 72197 ==

== ENCOUNTER 2025-07-21 12:38 | Outpatient (AMB) | payer MEDICARE, SELFPAY ==
--- OUTSIDE RECORDS SUMMARY | 2024-12-29 04:00 | XMS_ITS ---
Author Organization [employer] [facility] Address [address] [place] [address] Care Team Providers Care Reconciler Name Role Phone Derek Amado Primary Care Provider Unav kariSona Phelan Unavailable [phone] Allergies No Known Allergies REASON FOR VISIT Painful nail(s) aggravated by shoes causing difficulty standing/walking Medications Medication SIG (Take, Route, Frequency, Duration) Notes Start Date End Date Status Multi Vit/Fl 0.25 MG 1 tablet Orally Onc e a day Active Fish Oil 1000 MG 1 capsule Orally Onc e a day Active Keflex 500 MG 1 capsule Orally desiree ry 12 hrs; Duration: 14 days 03/29/2016 Not-Taking Keflex 500 MG 1 capsule Orally desiree ry 12 hrs; Duration: 14 days Not-Taking Nitro-Bid 2 % as directed Transder mal apply bid to toes; Duration: 30 days Not-Taking Calcium 1 tab Oral Active aspirin Active Losartan Potassium 25 MG 1 tablet Orally Once a day; Duration: 30 day(s) Active Evista Active Social History Tobacco Use: Social History Observation Description Date Details (start date - stop date) Never Smoker NA - NA Tobacco use other than smoking: Question Answer Notes Are you an other tobacco user? No Tobacco Control (Standard) Question Answer Notes Tobacco use: Nonsmoker Additional Findings: Tobacco non-user Current no nsmoker AUDIT-C (Standard) Question Answer Notes Did you have a drink containing alcohol in the p ast year? No Points 0 Interpretation Negative Vital Signs Height 5 ft 5 in in 12/29/2024 Weight 160 lbs 12/29/2024 BMI 26.62 kg/m2 12/29/2024 Blood pressure systolic 120 mm Hg 12/30/19 25 Blood pressure diastolic 60 mm Hg 025 Procedures Procedure Date Ordered Date Performed Result Body Sit e 73856-OWINIKV NAIL, 6 OR MORE 12/29/2024 N/A Encounters Encounter Location Date Provider Diagnosis [facility] [address] [address] 12/29/2024 Sona Thomas Pain in right toe(s) M79.674 ; Onychomycosis B35.1 and Pain in left toe(s) M79.675 Assessments Encounter Date Diagnosis (ICD Code) Assessment Notes Treatment Notes Treatment Clinical Notes Section Notes 12/29/2024 Pain in right toe(s) (ICD-10 - M79.674) 12/29/2024 Onychomycosis (ICD-10 - B35.1) 12/29/2024 Pain in left toe(s) (ICD-10 - M79.675) Plan Of Treatment Pending Test Test Name Order Date [id number] NAIL, 6 OR MORE 12/29/2024 Next Appt Details Follow Up: 3 Months, Reason: Provider Name:Sona rush, 10/15/2025 09:00:00 AM, [address] [place] [address], [phone], Procedure Notes * Category Sub-Category Detail Notes Debride Nail 6-10 Nail debridement Due to the cl inical pathology outlined in the exam findings, performance of this nail treatment is medically necessary as its management by an unskilled/untrained nonprofessional would put this patients foot and overall health at risk. Therefore, debridement to affected nail(s), as described in exam ( TA, T1, T2, T3, T4, T5, T6, T7, T8, T9, ), was performed exclusively by the physician of record to reduce/remove overall nail length, girth, thickness, subungual debris, and necrotic tissue, by manual and/or electrical means through the use of a nail nipper and/or dremel-type convex grinder operator, to a more viable healthy nail plate or bed tissue 6-10 nails in total. Silver nitrate was used for any petechial bleeding as necessary. Definitive antifungal treatment options, both pharmaceutical and surgical, have been reviewed and discussed with the patient. The patient solely prefers the use of intermittent/as needed professional debridement services for their nail condition and understands the need for additional periodic treatments to maintain effectiveness in symptomatic relief - 26128 Progress Notes * Callie ANDREWS RDOB:[birth year] (80 yo F)Acc No.[id number]:12/29/2024 Progress Note Patient: Callie DHILLON Provider: Daylin Thomas DPM :1945 A ge:79 Y S ex:Female Date:12/29/2024 Address:[address] [place], [place] [id number] Pcp:DALI Quiroga Subjective: * Chief Complaints: * 1 . Painful nail(s) aggravated by shoes causing difficulty standing/walking. * HPI: P ainful Nails: Pt States Last PCP Visit: D ate: 0 10/20/2024 Location: p revious PNA to nail borders, TA, T5, T7- most pain associated with T7. * ROS: G eneral/Constitutional: Nausea d enies. V omiting d enies. H khushbu Thirst d enies. L oss appetite d enies. C hills d enies. F atigue d enies.?Fever d enies. N ight Sweats d enies. U nexplained weight loss d enies. U nexplained weight gain d enies. H EENTM: Dentures d enies. D izziness d enies. G lasses/contacts d enies. R etinopathy d enies. B lurred/double vision d enies. T MJ?denies. D ischarge/drainage d enies. I mplants d enies. S ore throat d enies. D ental implants d enies. H skyler of hearing d enies. D ifficulty chewing/swallowing/speaking d enies. N ose bleeds d enies. S ore mouth d enies. ? R espiratory: On Oxygen d enies. P neumonia/pleurisy d enies.?Bronchitis d enies. E mphysema d enies. C oughing d enies. C ough blood?denies. S hortness of breath d enies. W heezing d enies. C ardiovascular: Pacemaker d enies. M PROBATION AGENT d enies. W PW d enies. C HF d enies. H eart attack d enies. S eptal defect d enies. R apid beat d enies. C hest pain d enies. A trial Fib. d enies. M urmur/Palpitations d enies. G astrointestinal: Hemorrhoids d enies. S tomach/Abdominal pain d enies. D ark blood stool d enies. I rritable bowel d enies. C onstipation d enies. D iarrhea d enies. H ematology: Swelling d enies. C lots d enies. V aricose Veins d enies. B ruising d enies. B leeding problem d enies. G enitourinary: Blood urine d enies. F requent/Painfu/urination/bladder control d enies. K idney stones d enies. I nfection (UTI) d enies. N ephropathy d enies. s ex trans dis (STD) d enies. P rostate d enies. M usculoskeletal: Hammertoes d enies. B unions d enies. B ack Pain d enies. M uscle Cramps/ Resting d enies. M uscle cramps / walking d enies.?Generalized aches and pains d enies. W eakness d enies. I nteg.: Kan d enies. S cars d enies. C orns/calluses?denies. I ngrown nails d enies. P ainful nails d enies. O pen Sores d enies. R ashes d enies. N eurologic: Difficulty sleeping d enies. B rain disorder d enies. N umbness d enies. B alance trouble d enies. C onfusion d enies. F ainting/blackouts d enies. T ingling d enies. T remors d enies. * Medical History: N europathy, Measles, Chicken pox. * Surgical History: B il cataract surgery 12/12/21,12/26/21. * Hospitalization/Major Diagno stic Procedure: D enies Past Hospitalization. * Family History: M other: , diagnosed with Unspecified heart disease, Family history of arthritis. F ather: , diagnosed with Unspecified heart disease. * Social History: T obacco Use: T obacco use other than smoking A re you an other tobacco user? N o Tobacco Control (Standard) T obacco use: N onsmoker A dditional Findings: Tobacco non-user C urrent nonsmoker D rugs/Alcohol: D rugs H ave you used drugs other than those for medical reasons in the past 12 months? N o M iscellaneous: C affeine: no. Children: no. Exercise: yes, gardening/yard work, housework. Marital status: . 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 D rug/Alcohol: A SANDRA-C (Standard) D id you have a drink containing alcohol in the past year? N o P oints 0 I nterpretation N egative * Medications: T aking Evista , Taking Losartan Potassium 25 MG Tablet 1 tablet Orally Once a day , Taking aspirin , Taking Calcium 1 tab Oral , Taking Fish Oil 1000 MG Capsule 1 capsule Orally Once a day , Taking Multi Vit/Fl 0.25 MG Tablet Chewable 1 tablet Orally Once a day , Not-Taking/PRN Nitro-Bid 2 % Ointment as directed Transdermal apply bid to toes , Not-Taking/PRN Keflex 500 MG Capsule 1 capsule Orally every 12 hrs , Not-Taking/PRN Keflex 500 MG Capsule 1 capsule Orally every 12 hrs , Medication List reviewed and reconciled with the patient * Allergies: N .K.D.A. Objective: * Vitals: H t: 5 ft 5 in, Wt:160, BMI: 26.62, Shoe size:9, BP:120/60mm Hg, Wt-k.58 kg. * Examination: N ails: NAILS are: E longated, overgrown, dystrophic, lytic, greater than 3mm thick, discolored and friable with crumbly malodorous subungual debris, with pain on palpation, TA, T1, T2, T3, T4, T5, T6, T7, T8, T9-. Assessment: * Assessment: 1. P ain in right toe(s) - M79.674 2 . O nychomycosis - B35.1 (Primary)? 3. P ain in left toe(s) - M79.675 Plan: * Treatment: * Procedures: D ebride Nail 6-10: Nail debridement D ue to the clinical pathology outlined in the exam findings, performance of this nail treatment is medically necessary as its management by an unskilled/untrained nonprofessional would put this patients foot and overall health at risk. Therefore, debridement to affected nail(s), as described in exam ( TA, T1, T2, T3, T4, T5, T6, T7, T8, T9, ), was performed exclusively by the physician of record to reduce/remove overall nail length, girth, thickness, subungual debris, and necrotic tissue, by manual and/or electrical means through the use of a nail nipper and/or dremel-type convex grinder operator, to a more viable healthy nail plate or bed tissue 6-10 nails in total. Silver nitrate was used for any petechial bleeding as necessary. Definitive antifungal treatment options, both pharmaceutical and surgical, have been reviewed and discussed with the patient. The patient solely prefers the use of intermittent/as needed professional debridement services for their nail condition and understands the need for additional periodic treatments to maintain effectiveness in symptomatic relief - 12697. * Procedure Codes: 1 1721 DEBRIDE NAIL, 6 OR MORE * Follow Up: 3 Months * Images: * The named appointment provid er may or may not be the originator of this progress note, and it is not deemed complete until electronically signed by the appointment provider. Sign off status: Pending * Provider: Daylin Thomas DPM Date: 0 12/29/2024 Generated for Bruce araiza/Mily/Edi on: 09/20/2024 03:19 PM EST History and Physical Notes * HPI (History of Present Illness) Category Sub-Category Detail Notes Category Not es Painful Nails Location: previous PNA to nail borders, TA, T5, T7- most pain associated with T7 Pt States Last PCP Visit: Date:: 10/20/2024 Examination Category Sub-Category Detail Notes Category Not es Nails NAILS are: Elongated, overg rown, dystrophic, lytic, greater than 3mm thick, discolored and friable with crumbly malodorous subungual debris, with pain on palpation, TA, T1, T2, T3, T4, T5, T6, T7, T8, T9-
--- NOTE | 2025-07-21 12:47 | MHC.OFFVIS ---
Vital Signs 07/21/25 12:49 Height 5 ft 4 in Weight 145 lb BMI 24.9 BP 118/72 Intake Visit Reasons: MRI follow up Special Effects Designer Required: No Information Interpreted: non-clinical & clinical Accompanied by: Self / Same As Patient Allergies No Known Allergies Allergy (Verified 07/21/25 12:49) Post menopausal: Yes HPI Comments Details: Presenting for follow-up regarding pelvic MRI done on 07/15/2025 which showed the following: IMPRESSION: Probable sacroiliitis, right greater than the left side. Probable 1.8 cm uterine fibroid. Grade 1 anterolisthesis L5-S1. Levoconvex rotoscoliosis, lumbar spine. Spina bifida occulta, sacrum and associated Tarlov cysts. Multifocal cystic lesions, liver and kidney. ADDENDUM #1 I do not see the left ovary. There is a questionable 3 cm nonenhancing fluid signal characteristic lesion in the right adnexa. Recommend dedicated transabdominal and transvaginal pelvic ultrasound. The patient is has been complaining of weight loss associated with constipation abdominal bloating last six-months 05/05/2025 CT scan of abdomen and pelvis done at [place] showed prominent right ovary, pelvic ultrasound recommended. 05/13/2025 Pelvic ultrasound done at [place] showed 1.7 cm myoma, ovaries were not seen recommended pelvic MRI with contrast for further evaluation 06/22/2025 MRI of the pelvis done at [place] showed mildly complex structure of the right aspect of the pelvis the nature is uncertain possibility of inclusion cyst versus ovarian neoplasm should be considered. Recommended a follow-up MRI with contrast in 6 weeks The patient has had weight loss over the last few months and has been increasingly feeling rectal pressure causing her to go up to 10 times per day to the bathroom. [facility] Medical History COVID-19 vaccine series completed Arthritis Skin cancer Osteopenia Osteoporosis Hiatal hernia Surgical History History of esophagogastroduodenoscopy (EGD) H/O colonoscopy Family History Father HTN (hypertension) Mother HTN (hypertension) Sister Breast cancer Social History Household Members: Spouse Housing: House Are you a primary personal caregiver to a significant other at home: No Do you presently have visiting nurse or other home services: No Alcohol intake: never Patient Tobacco Use Status: Former Tobacco user Tobacco use type: Cigarette Years Smoked: 16 Current occupational status: retired Sexual orientation: Straight/Heterosexual Gender identity: Female Review of Systems Const All systems reviewed & are unremarkable except as noted in HPI and below Reports as per HPI and Reports no additional complaints GI Reports no additional complaints Reports no additional complaints Assessment & Plan Assessment & Plan (1) Adnexal mass: Comment: With weight loss and rectal pressure Code(s): N94.89 - Other specified conditions associated with female genital organs and menstrual cycle Category: Medical Plan: Discussed with the patient the results of the pelvic MRI. Will order CA 125, CA 19-9 and CEA, referred the patient to Gyne Onc for further management. Appointment scheduled with Dr. Cruz on 08/04 at 09:00, the patient is aware Instructed the patient to call our office back in case a referral appointment is not scheduled, missed or canceled so that we will assist on rescheduling another appointment, the patient verbalized understanding agreed with the plan. Orders: Orders CA-125 Today N83.299 - Other ovarian cyst, unspecified side Carcinoembryonic Antigen Today N83.299 - Other ovarian cyst, unspecified side Carbohydrate Antigen 19-9 Today N83.299 - Other ovarian cyst, unspecified side Referrals Gynecologic Oncology Referral N94.89 - Other specified conditions associated with female genital organs and menstrual cycle Coding Level of Care Code Est Pt Level 3 (30994) Diagnoses Adnexal mass N94.89
[2025-07-21 12:49] VITALS: BP 118/72; BMI 24.9
--- OUTSIDE RECORDS SUMMARY | 2025-07-21 15:19 | XMS_ITS | Clinical Summary ---
Author Organization [facility] [address] [place] [address] Address [address] [facility] [place] Phone Care Team Providers Care Automotive Welder Name Role Phone Derek Sams Primary Care Provider [phone] Allergies No known active allergies Medications calcium [...] Team Description 06/19/2025 Results Follow-Up Adult Medicine [address] [phone] Nandini Mckay, PA 06/17/2025 9:46 AM EDT - 06/17/2025 11:59 PM EDT Hospital Encounter Radiology Department - [address] [phone] Enlarged ovary Discharge Disposition: Home or Self Care 05/13/2025 8:59 AM EDT - 05/13/2025 11:59 PM EDT Hospital Encounter Radiology Department - [address] [phone] Enlarged ovary Discharge Disposition: Home or Self Care 05/05/2025 8:34 AM EDT - 05/05/2025 11:59 PM EDT Hospital Encounter CT Scan - [address] [phone] Abdominal bloating; Weight loss; Constipation, unspecified constipation type Discharge Disposition: Home or Self Care 04/27/2025 11:00 AM EDT Office Visit Adult Medicine [address] [phone] Nandini Mckay PA Primary hypertension (Primary Dx); [...] HISTORICAL COLONOSCOPY; COMMENT: negative COLONOSCOPY 09/17/2012 PROCEDURE: [place] COLONOSCOPY FLX DX W/COLLJ SPEC WHEN PFRMD; COMMENT: no polyps ESOPHAGOGASTRODUODENOSCOPY 09/17/2013 PROCEDURE: [place] ESOPHAGOGASTRODUODENOSCOPY TRANSORAL DIAGNOSTIC; COMMENT: small HH; non-obstructive [...] hiv Brother 3 Alive Father (Age 82) [place] DM 4 SI BS 1 HIV 1 [...] 10/30/2025 8:15 AM EST Office Visit Adult [address] [phone] Derek Sams PA [address] [place] [phone] Health Maintenance Due Date Last Done Comments [...] Procedure Name Priority Date/Time Associated Diagnosis Comments EXTERNAL MRI REPORT 07/15/2025 EXTERNAL MRI REPORT 07/15/2025 MR PELVIS WO AND W CONTRAST Routine [...] Recently Relevant to Health Maintenance Results * External MRI Report (07/15/2025) Only the most recent of2 resultswithin the time period is included. Anatomical Region Laterality Modality Magnetic Resonan ce us Provider [facility] MRI PROCEDURES Final Result * MR Pelvis wo and w Contrast [...] Signed Date: 06/17/2025 20:59 ET Workstation ID: [id number] Transcribed By: Self Edit Transcribed Date: 06/17/2025 [...] Signed Date: 06/17/2025 20:59 ET Workstation ID: [id number] Transcribed By: Self Edit Transcribed Date: 06/17/2025 [...] Signed Date: 05/13/2025 13:54 ET Workstation ID: [id number] Transcribed By: Self Edit Transcribed Date: 05/13/2025 [...] Signed Date: 05/13/2025 13:54 ET Workstation ID: [id number] Transcribed By: Self Edit Transcribed Date: 05/13/2025 13:49 ET us Nandini Woody [facility] IMG US PROCEDURES Final Result * Helicobacter pylori breath test (05/13/2025 9:52 AM EDT) H Pylori Breath Test Negative Negative LAB CHEMISTRY METHOD 05/13/2025 1:[address] [facility] Breath Oral cavity structure / Unknown Non-blood Collection / Unknown 05/13/2025 9:52 AM EDT 05/13/2025 9:52 AM EDT us Nandini Woody [facility] LAB BODY FLUIDS AND STOOLS ORDER CORNELIUS Final Result [facility] [address] [place] [address], [place] [phone] * CT Abdomen Pelvis wo Contrast (05/05/2025 8:55 AM EDT) Anatomical Region Laterality Modality Body Computed Tomogra phy 05/05/2025 8:57 AM EDT Impressions 05/06/2025 9:17 AM EDT No evidence of an acute abdominal or pelvic process. Prominent appearing right ovary. Recommend pelvic ultrasound for further evaluation. A copy of this report will be provided to the [facility]. POS - [id number] -------- FINAL REPORT -------- Dictated By: Samantha Burch Dictated Date: 05/05/2025 08:57 ET Assigned Physician: Samantha Burch Reviewed and Electronically Signed By: Samantha Burch Signed Date: 05/06/2025 09:17 ET Workstation ID: [id number] Transcribed By: Self Edit Transcribed Date: 05/05/2025 [...] this report will be provided to the [facility]IND[facility]. POS - [id number] -------- FINAL REPORT -------- Dictated By: Samantha Burch Dictated Date: 05/05/2025 08:57 ET Assigned Physician: Samantha Burch Reviewed and Electronically Signed By: Samantha Burch Signed Date: 05/06/2025 09:17 ET Workstation ID: [id number] Transcribed By: Self Edit Transcribed Date: 05/05/2025 09:52 ET Nandini MCNALLY IMG CT PROCEDURES Final Result * Lipid panel with reflex to direct LDL (02/24/2025 7:53 AM EDT) Cholesterol 171 0 - 200 mg/dL LAB CHEMISTRY METHOD 02/24/2025 2:[address] [facility] Triglycerides 53 0 - 150 mg/dL LAB CHEMISTRY METHOD 02/24/2025 2:[address] [facility] HDL 80 >=40 mg/dL LAB CHEMISTRY METHOD 02/24/2025 2:[address] [facility] LDL Calculated 80 0 - 100 mg/dL LAB CHEMISTRY METHOD 02/24/2025 2:[address] [facility] VLDL Cholesterol Jay 10.6 mg/dL LAB CHEMISTRY METHOD 02/24/2025 2:[address] [facility] Non HDL Chol. (LDL+VLDL) 91 <145 mg/dL LAB CHEMISTRY METHOD 02/24/2025 2:[address] [facility] Chol/HDL Ratio 2.1 0.0 - 4.4 LAB CHEMISTRY METHOD 02/24/2025 2:[address] [facility] Blood Venous blood specimen / Unknown Venipuncture / Unknown 02/24/2025 7:53 AM EDT 02/24/2025 7:53 AM EDT Derek MCNALLY LAB BLOOD ORDERABLES Ansley l Result [facility] [address] [place] [address], [place] [phone] * Comprehensive metabolic panel (02/24/2025 7:53 AM EDT) Sodium 142 133 - 145 mmol/L LAB CHEMISTRY METHOD 02/24/2025 2:23 PM [facility] Potassium 4.2 3.5 - 5.5 mmol/L LAB CHEMISTRY METHOD 02/24/2025 2:23 PM [facility] Chloride 108 96 - 110 mmol/L LAB CHEMISTRY METHOD 02/24/2025 2:23 PM [facility] CO2 28 21 - 32 mmol/L LAB CHEMISTRY METHOD 02/24/2025 2:23 PM [facility] Anion Gap 6 3 - 11 LAB CHEMISTRY METHOD 02/24/2025 2:23 PM [facility] Glucose 86 70 - 100 mg/dL LAB CHEMISTRY METHOD 02/24/2025 2:23 PM [facility] BUN 14 5 - 25 mg/dL LAB CHEMISTRY METHOD 02/24/2025 2:23 PM [facility] Creatinine 0.77 0.50 - 1.10 mg/dL LAB CHEMISTRY METHOD 02/24/2025 2:23 PM [facility] eGFR 78 >=60 mL/min/1. 73m2 LAB CHEMISTRY METHOD 02/24/2025 2:23 PM [facility] Comment:Calculation based on the Chronic Kidney Disease Epidemiology Collaboration (CKD-EPI) equation refit without adjustment for race. BUN/Creatinine Ratio 18.2 LAB CHEMISTRY METHOD 02/24/2025 2:23 PM [facility] Calcium 9.1 8.5 - 10.5 mg/dL LAB CHEMISTRY METHOD 02/24/2025 2:23 PM [facility] AST (SGOT) 27 10 - 42 unit/L LAB CHEMISTRY METHOD 02/24/2025 2:23 PM [facility] ALT (SGPT) 25 10 - 60 unit/L LAB CHEMISTRY METHOD 02/24/2025 2:[address] [facility] Alkaline Phosphatase 59 42 - 121 unit/L LAB CHEMISTRY METHOD 02/24/2025 2:[address] [facility] Total Protein 6.8 6.0 - 8.0 g/dL LAB CHEMISTRY METHOD 02/24/2025 2:[address] [facility] Albumin 3.6 3.2 - 5.0 g/dL LAB CHEMISTRY METHOD 02/24/2025 2:[address] [facility] Total Bilirubin 0.6 0.0 - 1.4 mg/dL LAB CHEMISTRY METHOD 02/24/2025 2:[address] [facility] Blood Venous blood specimen / Unknown Venipuncture / Unknown 02/24/2025 7:53 AM EDT 02/24/2025 7:53 AM EDT Derek MCNALLY LAB BLOOD ORDERABLES Ansley l Result [facility] [address] [place] [address], * Depression Screening (04/22/2024) [facility] Depression Screening abstracted Historical Provider HEALTH MAINTENANCE [...] should be classified as having osteoporosis. The [facility] Department of Internal Medicine recommends using National [...] Andrews shouldbe classified as having osteoporosis. The [facility] Department of Internal Medicine recommendsusing National Osteoporosis [...] of fracture risk by FRAX. Derek MCNALLY [facility] DXA PROCEDURES Final Result from Last 3 Months or Most Recently Relevant to Health Maintenance Insurance MEDICARE [facility] Care Teams Automotive Welder Relationship Specialty Start Date End Date Derek Sams PA [address] [place] [address] PCP - General Internal Medicine 09/09/20
--- OUTSIDE RECORDS SUMMARY | 2025-07-21 15:19 | XMS_ITS ---
Author Organization [facility] [address] [place] [address] [place], [place] [address]y [place] Phone Care Team Providers Care Respiratory Medicine Physician Name Role Phone Derek Sams Primary Care Provider [phone] Active Problems Problem Noted Date Diagnosed Date [...]
--- OUTSIDE RECORDS SUMMARY | 2025-07-21 15:19 | XMS_ITS | Patient Health Record ---
Author Organization [facility] Address [address] [place] [address] Care Team Providers Care Slip Operator Name Role Phone Derek Amado Primary Care Provider Sona Gomez Unavailable [phone] Allergies No Known Allergies Reason For Referral [...] W/U Status Risk Notes Problem Tinea unguium (719577633) Tinea unguium (B35.1) Active confirmed Vital Signs Blood pressure diastolic 65 mm Hg 07/13/2025 Height 5 ft 5 in in 07/13/2025 Blood pressure systolic 127 mm Hg 07/13/2025 Weight 150 lbs 07/13/2025 BMI 24.96 kg/m2 07/13/2025 Procedures Procedure Date Ordered Date Performed Result Body Sit e 44719-IXZRCOZ NAIL, 6 OR MORE 08/06/2024 N/A 11127-ZIWSVUE NAIL, 6 OR MORE 12/29/2024 N/A 63067-UHHSWGB NAIL, 6 OR MORE 04/02/2025 N/A 40594-HTJSXKW NAIL, 6 OR MORE 07/13/2025 N/A Encounters Encounter Location Date Provider Diagnosis [address] [phone] 12/29/2024 Sona Thomas Pain in right toe(s) M79.674 ; Onychomycosis B35.1 and Pain in left toe(s) M79.[address] [phone] 08/06/2024 Sona Estradaaker Tinea unguium B35.1 ; Pain in right toe(s) M79.674 and Pain in left toe(s) M79.[address] [phone] 04/02/2025 Sona Thomas Pain in right toe(s) M79.674 ; Onychomycosis B35.1 and Pain in left toe(s) M79.[address] [phone] 07/13/2025 Sona Thomas Pain in right toe(s) [...] Treatment Pending Test Test Name Order Date 73575-RVKHPGP NAIL, 6 OR MORE 12/29/2024 09857-YRNVCLR NAIL, 6 OR MORE 12/08/2015 34960-GYMFZQR NAIL, 6 OR MORE 07/17/2018 85478-OACUVZB NAIL, 6 OR MORE 08/06/2024 81813-UISLLPP NAIL, 6 OR MORE 04/02/2025 82263-CQTQERI NAIL, 6 OR MORE 07/13/2025 45857-PNMNPMH NAIL, 1-5 08/30/2016 86110-EHTREFA NAIL, -5 12/11/2016 97667-LXXDJBQ NAIL, -5 02/28/2016 28764-UMXMZSB NAIL, -05/31/2016 28958-SLCLZSM NAIL, -5 12/25/2013 95963-CZPDKSZ NAIL, -06/09/2015 64150-BGXHDBW NAIL, -5 09/01/2015 48595-Hmnr Destruction, -14 06/09/2015 82532-Ikpw Destruction, -07/08/2015 24466-Xyxp Destruction, 1-14 09/01/2015 83143-Ocjm Destruction, 1-14 12/11/2016 94648-Sodr Destruction, -04/17/2018 92216-Cujp Destruction, -14 07/17/2018 97093-Dyquoded Plate 06/09/2015 77918-Rjhlrsva Plate 12/25/2013 16777-ZZO 03/13/2016 11294-NHB 02/28/2016 37083- Debride <25 sq cm 03/13/2016 89516- Debride <25 sq cm 03/29/2016 57850- Debride <25 sq cm 04/17/2016 70340- Debride <25 sq cm 05/31/2016 Next Appt Details Provider Name:Sona De Souza victor manuel, 10/15/2025 09:00:00 AM, [address] [place], [address], Insurance Providers Payer Name Payer Address Payer Phone Subscriber Number Group Number Insured Name Patient Relationship to Insured Coverage Start Date Coverage End Date Medicare National [employer] [address] [facility] [place] [address] [id number] Callie Lara Self - patient is the insured [employer] [address] [place] [address] [id number] Callie Lara Self - patient is the insured Medical (General) History Medical History History ICD Code Neuropathy Measles Chicken pox Surgical History Surgery Date(Month/Year) Philip cataract surgery 12/12/21,12/26/21
== END 2025-07-21 13:56 | disposition home or self-care (01) ==
LOC: HO.HWS 12:38
PROVIDERS: PCP Physician Assistant Medical; Visit Provider Obstetrics & Gynecology
DX: N94.89 Other specified conditions associated with female genital organs and menstrual cycle (principal)
CPT/HCPCS: 99213

== ENCOUNTER 2025-07-21 12:38 | Outpatient (REF) | payer MEDICARE, SELFPAY ==
[2025-07-21 14:42] LABS: Carcinoembryonic Antigen < 1.73 ng/mL
[2025-07-22 09:02] LABS: CA-125 4 U/mL (<35)
== END 2025-07-21 12:39 | disposition home or self-care (01) ==
LOC: HO.LAB 12:38
PROVIDERS: PCP Physician Assistant Medical; Visit Provider Obstetrics & Gynecology
DX: N94.89 Other specified conditions associated with female genital organs and menstrual cycle (principal); N83.291 Other ovarian cyst, right side; K62.89 Other specified diseases of anus and rectum; R63.4 Abnormal weight loss
CPT/HCPCS: 36415; 82378; 86301; 86304; 99212